=== PATIENT | female | born 1950 | race Two or more races ===

== ENCOUNTER 2020-06-14 09:45 | Inpatient (IN) | payer OTHER ==
[~2020-06-14] VITALS: Ht 162.6 cm; Wt 72.7 kg
[2020-06-14 11:42] LABS: Basophils # (auto) 0 10 ^3/uL (0-0.2); Basophils % (auto) 0.2 % (0.0-2.0); Eosinophils # (auto) 0 10 ^3/uL (0-0.8); Hemoglobin 15.7 g/dL (12.2-16.2); Lymphocytes # (auto) 0.8 10 ^3/uL (0.4-5.4); Lymphocytes % (auto) 9.1 % (10.0-50.0); Mean Corpuscular Hemoglobin 31.2 pg (28.0-32.0); Mean Corpuscular Hgb Conc. 33.4 g/dL (32.0-36.0); Mean Corpuscular Volume 93.2 fL (80.0-100.0); Monocytes # (auto) 0.5 10 ^3/uL (0-1.3); Neutrophils # (auto) 7.2 10 ^3/uL (1.6-8.6); Neutrophils % (auto) 84.7 % (37.0-80.0); Nucleated Red Blood Cells % 0.1 %; Platelet Count (auto) 225 10^3/uL (140-450); Red Blood Cells 5.05 10^6/uL (4.0-5.20); White Blood Cell 8.5 10^3/uL (4.4-10.8)
[2020-06-14] MEDS: cefTRIAXone 1GM/50ML D5W 50 ML IV SCH (12:23)
[2020-06-14 12:25] LABS: Albumin 2.6 g/dL (3.4-5.0); Anion Gap 11 (5-15); Blood Urea Nitrogen 23 mg/dL (7-18); Calcium 8.3 mg/dL (8.5-10.1); Carbon Dioxide 24 mmol/L (21-32); Chloride 102 mmol/L (98-107); Glucose 91 mg/dL (74-106); Potassium 3.8 mmol/L (3.5-5.1); Sodium 137 mmol/L (136-145)
[2020-06-14 12:33] LABS: Alanine Aminotransferase 58 U/L (13-56); Alkaline Phosphatase 90 U/L (45-117); Aspartate Aminotransferase 86 U/L (15-37); BUN/Creatinine Ratio 29.5; Bilirubin, Total 0.6 mg/dL (0.2-1.0); GFR African American 94 mL/min; GFR Non-African American 78 mL/min; Total Protein 7.3 g/dL (6.4-8.2)
[2020-06-14] MEDS: AZITHROMYCIN 500MG/ 250ML 250 ML IV SCH (12:38)
[2020-06-14] MEDS ORDERED: ENOXAPARIN SOD 40 MG/0.4 ML SYRINGE SC SCH (12:41)
[2020-06-14 14:30] VITALS: BP 119/23
[2020-06-14] MEDS ORDERED: NITROGLYCERIN 0.4 MG SL TAB SL PRN (14:30)
[2020-06-14] MEDS ORDERED: ONDANSETRON HCL 4 MG/2 ML VIAL IV PRN (14:30)
[2020-06-14] MEDS ORDERED: MORPHINE SULF INJ 2 MG/ML SYRINGE 1ML IV PRN (14:30)
[2020-06-14] MEDS ORDERED: ACETAMINOPHEN 325 MG TAB PO PRN (14:30)
[2020-06-14] MEDS: MORPHINE SULF INJ 2 MG/ML SYRINGE 1ML IV PRN (14:58)
[2020-06-14 16:22] VITALS: BP 123/56
[2020-06-14 18:00] VITALS: BP 141/58
[2020-06-14 21:00] LABS: Urine Bacteria FEW /hpf (None Seen); Urine Blood Negative /uL (Negative); Urine Specific Gravity 1.023 (1.001-1.035); Urine WBC 3 /hpf (0 - 5)
[2020-06-14 22:00] VITALS: BP 135/63
[2020-06-15] VITALS (30 sets, daily range): BP systolic 106–146; BP diastolic 42–77
[2020-06-15] MEDS: MORPHINE SULF INJ 2 MG/ML SYRINGE 1ML IV PRN (02:58)
[2020-06-15] MEDS: HYDROcodone-ACET 5/325MG TAB PO PRN ×2 (08:12→15:41)
[2020-06-15 08:33] LABS: Lactate Dehydrogenase 603 U/L (84-246)
[2020-06-15 08:34] LABS: CRP High Sensitivity > 19 mg/dL (< 0.3)
[2020-06-15] MEDS: ASCORBIC ACID 500 MG TAB PO SCH ×2 (09:09→11:35)
[2020-06-15] MEDS: ZINC SULFATE 220mg CAP or TAB PO SCH ×2 (09:10→11:35)
[2020-06-15] MEDS: CHOLECALCIFEROL (VITD3) 2,000 UNIT CAP PO SCH ×2 (09:10→11:35)
[2020-06-15] MEDS: cefTRIAXone 1GM/50ML D5W 50 ML IV SCH ×2 (09:19→11:35)
[2020-06-15] MEDS: DexAMETHasone SOD PHOS 10MG/1ML VIAL INJ IV SCH ×2 (09:19→11:34)
[2020-06-15] MEDS: AZITHROMYCIN 500MG/ 250ML 250 ML IV SCH ×2 (09:21→11:35)
[2020-06-15] MEDS ORDERED: ENOXAPARIN SOD 40 MG/0.4 ML SYRINGE SC SCH (10:00)
--- NOTE | 2020-06-15 10:50 | NUR ---
Pt being admitted to ICU SARAH BERGERON admitted to ICU ROOM 109 via gurney on ships or barges loader, and portable 02. Patient transferred to bed, connected to ICU monitoring and oxygen, and weighed by bed scale. Patient oriented to YASMANI PARKER, primary RN, unit, room, bed, and unit policies regarding patient care and visiting hours. All questions and concerns addressed, patient verbalized understanding.
--- NOTE | 2020-06-15 10:55 | NUR ---
PT WAS TRANSPORTED WITHOUT INCIDENT FROM ER 6 TO 109 IN ICU. PT WAS ON BP AND DIRECTOR OF MUSIC AND 100% NRB MASK. PT WAS PLACED ON HFNC ON ORDERED SETTINGS. PT TOLERATING WELL. NO ACUTE DISTRESS NOTED. BAG AND MASK UNIT AT BEDSIDE ALONG WITH O2 SOURCE. HF DEVICE TO RED OUTLET.
--- NOTE | 2020-06-15 13:45 | NUR ---
SPOKE TO OLDEST SON ROSALIE # [phone] ROSALIE STATES THAT IF FOR SOME REASON HE CAN NOT BE REACHED TO CALL HIS YOUNGER BROTHER CODI @ [phone]. ALL QUESTIONS ANSWERED AND ROSALIE GIVEN AN UPDATE ON PATIENTS CURRENT STATUS.
--- NOTE | 2020-06-15 15:34 | NUR ---
PATIENT PRONING PATIENT CURRENTLY PRONING, O2 SATURATION IS CURRENTLY 99% WITH PATIENT PRONING. WILL CONTINUE TO ASSESS.
--- NOTE | 2020-06-15 15:59 | NUR ---
PATIENT NOW REPOSITIONED SUPINE.
[2020-06-15] MEDS ORDERED: FUROSEMIDE 20 MG/2 ML VIAL IV ONE (18:45)
--- NOTE | 2020-06-15 20:00 | NUR ---
SHIFT OPENING NOTE RECEIVED PATIENT AWAKE, ALERT AND ORIENTED X4. ON HIGH FLOW NASAL CANNULA 60L, 100% FI02. SOB NOTED WITH MINIMAL EXERTION. POX 91%. PHYSICAL ASSESSMENT COMPLETED, SEE INTERVENTIONS. INSTRUCTED ON POC AND TO CALL FOR ASSIST NEEDED. BED IS IN THE LOWEST POSITION WITH SIDE RAILS UP X2, CALL LIGHT IS WITHIN REACH. ON ISOLATION FOR COVID 19 PRECAUTIONS.
[2020-06-15] MEDS: ENOXAPARIN SOD 40 MG/0.4 ML SYRINGE SC SCH (20:58)
--- NOTE | 2020-06-15 21:00 | NUR ---
SONAL CONSENT SIGNED BY PATIENT AND FAXED TO PHARMACY
[2020-06-15] MEDS ORDERED: REMDESIVIR 200 MG in NS 210ml LOADING DOSE ADULT IV ONE (22:00)
--- NOTE | 2020-06-15 22:15 | NUR ---
ASSISTED PATIENT WITH BEDPAN 300 ML OF ORANGE URINE NOTED. ASSISTED WITH PERICARE
--- NOTE | 2020-06-15 22:40 | NUR ---
Respiratory note: ATTEMPTED TO PLACE PT ON BIPAP AT THIS TIME. PT STATES SHE IS UNCOMFORTABLE WITH THE MASK. MASK READJUSTED BUT PT IS REFUSING BIPAP AT THIS TIME. PT REMAINS ON HFNC 60L AT 100% FIO2 AND HAS PLACED HERSELF IN THE PRONE POSITION. BIPAP #B6 REMAINS AT THE BEDSIDE CONNECTED TO RED OUTLET AND OXYGEN SOURCE WITH AMBU-BAG AT BEDSIDE. MASK SIZE MEDIUM WITH PROTECTA-GEL AT BEDSIDE. PT IS TOLERATING HFNC IN PRONE POSITION WELL AT THIS TIME. RN INFORMED OF PT BIPAP REFUSAL. WILL CONTINUE TO CLOSELY MONITOR.
[2020-06-16] VITALS (37 sets, daily range): BP systolic 98–143; BP diastolic 42–81
--- NOTE | 2020-06-16 00:05 | NUR ---
ROUNDS PATIENT IS QUIETLY LAYING IN BED SLEEPING IN PRONE POSITION. POX 99%. REMAINS ON HIGH FLOW 60L, 100% FI02.
[2020-06-16 04:29] LABS: Basophils # (auto) 0 10 ^3/uL (0-0.2); Basophils % (auto) 0.1 % (0.0-2.0); Eosinophils # (auto) 0 10 ^3/uL (0-0.8); Eosinophils % (auto) 0.4 % (0.0-7.0); Hemoglobin 14.7 g/dL (12.2-16.2); Lymphocytes # (auto) 0.9 10 ^3/uL (0.4-5.4); Lymphocytes % (auto) 13.5 % (10.0-50.0); Mean Corpuscular Hemoglobin 31.2 pg (28.0-32.0); Mean Corpuscular Hgb Conc. 33.4 g/dL (32.0-36.0); Mean Corpuscular Volume 93.4 fL (80.0-100.0); Monocytes # (auto) 0.4 10 ^3/uL (0-1.3); Monocytes % (auto) 6.7 % (0.0-12.0); Neutrophils # (auto) 5.2 10 ^3/uL (1.6-8.6); Neutrophils % (auto) 79.3 % (37.0-80.0); Nucleated Red Blood Cells % 0.5 %; Platelet Count (auto) 238 10^3/uL (140-450); Red Blood Cells 4.71 10^6/uL (4.0-5.20); Red Cell Distribution Width 13.9 % (11.8-14.3); White Blood Cell 6.6 10^3/uL (4.4-10.8)
--- NOTE | 2020-06-16 04:30 | NUR ---
Respiratory note: RETURNED PT TO PRONE POSITION DUE TO DROP IN SPO2 IN SEMI-FOWLERS POSITION. PT TOLERATED WELL AND SPO2 INCREASED TO 99%. JACOBO WATER CHANGED AT THIS TIME. PT CARE TO BE HANDED OVER TO DAY RT.
--- NOTE | 2020-06-16 04:30 | NUR ---
ASSISTED PATIENT WITH BEDPAN 200 ML OF ORANGE URINE NOTED. ASSISTED WITH PERICARE ASSISTED PATIENT BACK TO THE PRONE POSITION. WILL CLOSELY MONITOR.
[2020-06-16 04:51] LABS: Calcium 8.7 mg/dL (8.5-10.1); Potassium 3.5 mmol/L (3.5-5.1)
[2020-06-16 04:57] LABS: Albumin 2.2 g/dL (3.4-5.0); Bilirubin, Total 0.8 mg/dL (0.2-1.0); Magnesium 2.7 mg/dL (1.6-2.6); Total Protein 6.8 g/dL (6.4-8.2)
--- NOTE | 2020-06-16 06:20 | NUR ---
MORNING HYGIENE CARE PARTIAL BATH PERFORMED USING WET SOAPY WASH CLOTHES. GOWN CHANGED. PARTIAL LINEN CHANGED. PATIENT REPOSITIONED FOR COMFORT. TOLERATED IT WELL.
--- NOTE | 2020-06-16 07:20 | NUR ---
REPORT REPORT RECEIVED FROM CHAD RNALTHEA. PT IN ISOLATION FOR +COVID. PT VIEWED THROUGH SLIDING GLASS DOORS.
--- NOTE | 2020-06-16 07:20 | NUR ---
END OF SHIFT REPORT GIVEN AND CARE ENDORSED TO ENE VELAZQUEZ.
--- NOTE | 2020-06-16 08:00 | NUR ---
ASSESSMENT PT IN ISOLATION FOR + COVID. PT AWAKE AND A/O X4. ABLE TO MOVE ALL EXTREMITIES AND ASSIST IN REPOSITIONING. LUNGS CLEAR AND DIMINISHED THROUGHOUT. ON HIGH FLOW O2 AT 100% FIO2 AND 60 L FLOW. O2 SAT 84% AFTER PT REPOSITIONED SELF IN BED. TELE SR 78. PALPABLE PULSES TO ALL EXTREMITIES WITH NO EDEMA NOTED. ABD SOFT WITH + BOWEL SOUNDS NOTED. LAST BM WAS ON 06/15. USES BEDPAN TO VOID, NONE AT THIS TIME. PT STATES SHE HAS PAIN IN HER CHEST WHEN SHE COUGHS, NO PAIN CURRENTLY. SKIN INTACT. RAILS UP AND BED IN LOW POSITION FOR PT SAFETY. CONTINUE TO MONITOR.
--- NOTE | 2020-06-16 09:00 | NUR ---
NUTRITION PT ATE ABOUT 50% OF HER BREAKFAST.
[2020-06-16] MEDS: cefTRIAXone 1GM/50ML D5W 50 ML IV SCH (09:09)
[2020-06-16] MEDS: AZITHROMYCIN 500MG/ 250ML 250 ML IV SCH (09:41)
--- NOTE | 2020-06-16 09:53 | NUR ---
FAMILY RECEIVED A PHONE CALL FROM PT'S SON, ROSALIE. AFTER VERIFYING THE PASSWORD, I UPDATED HIM ON HIS MOTHER'S CONDITION AND ANSWERED HIS QUESTIONS.
[2020-06-16] MEDS ORDERED: THIAMINE HCL 100 MG TAB PO SCH (10:00)
[2020-06-16] MEDS ORDERED: DexAMETHasone SOD PHOS 10MG/1ML VIAL INJ IV SCH (10:00)
--- NOTE | 2020-06-16 10:00 | NUR ---
ASSISTED PT TO PRONE. O2 SATS UP TO 95%. CONTINUE TO MONITOR.
[2020-06-16] MEDS: DexAMETHasone SOD PHOS 10MG/1ML VIAL INJ IV SCH (10:10)
[2020-06-16] MEDS: ENOXAPARIN SOD 40 MG/0.4 ML SYRINGE SC SCH ×2 (10:10→21:54)
[2020-06-16] MEDS: CHOLECALCIFEROL (VITD3) 2,000 UNIT CAP PO SCH (10:10)
[2020-06-16] MEDS: ZINC SULFATE 220mg CAP or TAB PO SCH (10:10)
[2020-06-16] MEDS: THIAMINE HCL 100 MG TAB PO SCH (10:10)
[2020-06-16] MEDS: ASCORBIC ACID 500 MG TAB PO SCH (10:11)
--- NOTE | 2020-06-16 11:40 | NUR ---
PT STATED SHE CAN'T LAY ON HER STOMACH ANY LONGER . ASSISTED PT TO CHANGE POSITION TO HER LEFT SIDE. CONTINUE TO MONITOR.
--- NOTE | 2020-06-16 14:00 | NUR ---
MD VISIT PT SEEN AND EXAMINED BY DR SOTO.
[2020-06-16] MEDS: REMDESIVIR 100mg in NS 230ml DAILYx4DAYS (NO VENT) IV SCH (16:39)
[2020-06-16] MEDS: guaiFENesin 200 MG/10 ML UD PO PRN ×2 (16:40→21:00)
--- NOTE | 2020-06-16 16:40 | NUR ---
PT GIVEN GUAIFENISON FOR C/O DRY HACKING COUGH.
--- NOTE | 2020-06-16 18:00 | NUR ---
MD VISIT PT SEEN BY DR MENARD. HE SPOKE WITH PT REGARDING CONVALESCENT PLASMA AND PT AGREES TO TAKE IT.
--- NOTE | 2020-06-16 19:00 | NUR ---
Opening Shift Note Assumed care of patient, awake and alert. No S/S of distress/SOB or pain. Instructed on POC and to call for assist PRN, will continue to monitor for changes Q1hr and PRN.
--- NOTE | 2020-06-16 19:30 | NUR ---
REPORT REPORT GIVEN TO MANJINDER BONILLA RN.
--- NOTE | 2020-06-16 22:30 | NUR ---
O2 SATS: RN noted patient to de-saturate to 74%. Patient noted to be asleep and breathing through her mouth. Patient made aware to go on Bi-PAP per MD orders due to her de-saturating. Patient verbalized she refused and feels okay. RN explained the risk of not using her Bi-PAP but still refuses. Patient repositioned for comfort and Hi-flow ensured to be in place. Patient's saturation went up to mid 90's. RN will continue to monitor and assess patient.
--- NOTE | 2020-06-16 23:30 | NUR ---
Blood bank: RN spoke with blood bank. Patient's convalescent plasma will be ordered. RN will await call back from blood bank for arrival of patients blood products.
[2020-06-17] VITALS (36 sets, daily range): BP systolic 109–154; BP diastolic 42–88
--- NOTE | 2020-06-17 | NUR ---
O2 SATS: RN noted patient to de-saturate to 84%. Patient noted to be asleep and breathing through her mouth. Patient made aware to go on Bi-PAP per MD orders due to her de-saturating. Patient verbalized she refused and feels okay. RN explained the risk of not using her Bi-PAP but still refuses. Patient repositioned for comfort and Hi-flow ensured to be in place. Patient's saturation went up to mid 90's. RN will continue to monitor and assess patient.
--- NOTE | 2020-06-17 01:00 | NUR ---
O2 SATS: RN noted patient to de-saturate to 79%. Patient noted to be asleep and breathing through her mouth. Patient made aware to go on Bi-PAP per MD orders due to her de-saturating. Patient verbalized she refused and feels okay. RN explained the risk of not using her Bi-PAP but still refuses. Patient repositioned for comfort and Hi-flow ensured to be in place. Patient's saturation went up to mid 90's. RN will continue to monitor and assess patient.
[2020-06-17] MEDS: MORPHINE SULF INJ 2 MG/ML SYRINGE 1ML IV PRN (01:04)
--- NOTE | 2020-06-17 01:21 | NUR ---
RT paged: RN paged RT to place patient on Bi-pap. Patient has finally agreed to go on Bi-PAP after de-sating into the 70's when she falls asleep. RN explained to patient the risk of not using her Bi-PAP per MD orders and patient finally agreed. RT made aware and is to come to patient bedside to place her on Bi-PAP.
--- NOTE | 2020-06-17 02:20 | NUR ---
RT at bedside: RT at patient bedside, patient placed on Bi-PAP. RN will continue to monitor and assess patient.
--- NOTE | 2020-06-17 02:51 | NUR ---
RT paged: Patient already on Bi-PAP. Patient noted to be saturating at 82%. RN ensured correct placement of Bi-PAP but patient still saturating low.
--- NOTE | 2020-06-17 02:55 | NUR ---
RT at bedside.
--- NOTE | 2020-06-17 03:44 | NUR ---
Patient and Bi-PAP: Patient saturating at 97% but called RN and states she wants the Bi-PAP off. RN explained to patient it is to her benefit that she leaves the Bi-PAP on at this time due her oxygen saturation having improved while on Bi-PAP. Patient still insisted to get off the Bi-PAP and placed back on Hi-Flow. Patient eventually agreed to stay on Bi-PAP at this time due to oxygen sats having improved. RN will continue to monitor and assess.
[2020-06-17 04:05] LABS: Basophils # (auto) 0 10 ^3/uL (0-0.2); Basophils % (auto) 0.1 % (0.0-2.0); Eosinophils # (auto) 0 10 ^3/uL (0-0.8); Hematocrit 42.5 % (36.0-46.0); Hemoglobin 14.4 g/dL (12.2-16.2); Lymphocytes # (auto) 0.7 10 ^3/uL (0.4-5.4); Lymphocytes % (auto) 9.5 % (10.0-50.0); Mean Corpuscular Hemoglobin 31.3 pg (28.0-32.0); Mean Corpuscular Hgb Conc. 33.9 g/dL (32.0-36.0); Mean Corpuscular Volume 92.3 fL (80.0-100.0); Monocytes # (auto) 0.6 10 ^3/uL (0-1.3); Monocytes % (auto) 8.1 % (0.0-12.0); Neutrophils % (auto) 82.3 % (37.0-80.0); Nucleated Red Blood Cells % 0.1 %; Platelet Count (auto) 237 10^3/uL (140-450); Red Cell Distribution Width 13.5 % (11.8-14.3); White Blood Cell 7.3 10^3/uL (4.4-10.8)
[2020-06-17 04:26] LABS: Albumin 2.2 g/dL (3.4-5.0); Calcium 8.5 mg/dL (8.5-10.1); Potassium 3.4 mmol/L (3.5-5.1)
[2020-06-17 04:29] LABS: BUN/Creatinine Ratio 33.3; Bilirubin, Total 0.7 mg/dL (0.2-1.0); Total Protein 6.4 g/dL (6.4-8.2)
--- NOTE | 2020-06-17 04:34 | NUR ---
Bi-PAP off: Patient was noted to saturate to 71%. RN noted patient took Bi-PAP off. RN entered patient's room and patient states she got tired of the mask and wanted it off. RN explained to patient the dangers of having her oxygen off and placed Bi-PAP back on. Patient's sats returned to 93%. RN will continue to monitor and assess patient.
--- NOTE | 2020-06-17 05:45 | NUR ---
Bi-PAP off: Patient was noted to saturate to 77%. RN noted patient took Bi-PAP off. RN entered patient's room and patient states she got tired of the mask and wanted it off. RN explained to patient the dangers of having her oxygen off but patient still refused to wear Bi-PAP. RN placed patient back on High Flow 60L, 100% FIO2. Saturation increased to 92%. RN will continue to monitor and assess patient.
[2020-06-17] MEDS: FUROSEMIDE 40 MG/4 ML VIAL IV SCH ×4 (06:27→19:55)
--- NOTE | 2020-06-17 07:17 | NUR ---
Respiratory note: GOT PAGED TO GO TO ROOM, FOUND PATIENT OFF HFNC. SPO2 62% ON ROOM AIR. PATIENT IS BEING NON-COMPLIANT RIPPING POX, BP CUFF AND HFNC OFF. I EXPLAINED TO HER THE IMPORTANCE OF KEEPING IT ON IN CROATIAN AND MALAGASY. PLACED HER BACK ON HFNC 60L 100% FIO2 PT STRESSED NUMEROUS TIMES THAT SHE DOES NOT LIKE OR WANT TO USE THE BIPAP. WILL RETURN FOR ABG. MARCUS PATIÑO
--- NOTE | 2020-06-17 08:00 | NUR ---
AM ASSESSMENT COMPLETED PT A+O X4 LS CL & DIMINISHED MOSTLY ON THE BASES, PT HAS A SOFT NON PRODUCTIVE COUGH, SHE GETS S.OB WITH ACTIVITY AND EASILY DESATURATES TO THE 40'S WHEN SHE TAKES OFF HER HIGH FLOW MASK. PT HAS NOT BEEN COMPLIANT ALL NIGHT WITH KEEPING HER OXYGEN MASK ON. THE RN HAD TO BE IN THE ROOM MULTIPLE TIME TO PLACE O2 MASK BACK ON HER FACE. I EDUCATED PT ON THE IMPORTANCE OF KEEPING OXYGEN ON. PT VERBALIZED UNDERSTANDING AND AGREED TO KEEP HIGH FLOW O2 MASK ON, SHE ALSO AGREED TO USE INCENTIVE SPIROMETER 10 TIMES PER HOUR WHILE AWAKE. PT SHOWS PROPER IS USAGE CAPABILITY. PULSES STRONG AND REGULAR IN ALL 4 EXTREMITIES MILD EDEMA. REPOSITIONED FOR COMFORT.
--- NOTE | 2020-06-17 08:30 | NUR ---
FC INSERTED FOR INCONTINENCE AND FREQUENT URINATION, PT TOLERATED PROCEDURE WITHOUT ANY DISCOMFORT.
--- NOTE | 2020-06-17 09:03 | NUR ---
UPDATED PT'S SON DEDRICK ON PT'S CONDITION. POC, ADMINISTERING CONVALESCENT PLASMA WITH COVID ANTIBODIES AND ADMINISTERING 2ND DOSE OF REMDESIVIR I ALSO NOTIFIED PT'S SON THAT PT WAS NON COMPLIANT WITH KEEPING HER O2 MASK ON ALL NIGH LAST NIGHT AND THAT THE SPO2 KEEP ON DROPPING ALL THE WAY TO THE 60'S. BUT TODAY PT IS WILLING TO BE COMPLIANT WITH POC. PT'S SON VERBALIZED UNDERSTANDING OF POC.
[2020-06-17 09:36] LABS: Magnesium 2.4 mg/dL (1.6-2.6); Phosphorus 3.5 mg/dL (2.5-4.90)
[2020-06-17] MEDS: AZITHROMYCIN 500MG/ 250ML 250 ML IV SCH (09:37)
[2020-06-17] MEDS: guaiFENesin 200 MG/10 ML UD PO PRN ×3 (10:11→22:26)
[2020-06-17] MEDS: ASCORBIC ACID 500 MG TAB PO SCH (10:11)
[2020-06-17] MEDS: THIAMINE HCL 100 MG TAB PO SCH (10:12)
[2020-06-17] MEDS: ZINC SULFATE 220mg CAP or TAB PO SCH (10:12)
[2020-06-17] MEDS: CHOLECALCIFEROL (VITD3) 2,000 UNIT CAP PO SCH (10:12)
[2020-06-17] MEDS: DexAMETHasone SOD PHOS 10MG/1ML VIAL INJ IV SCH (10:13)
[2020-06-17] MEDS: ENOXAPARIN SOD 40 MG/0.4 ML SYRINGE SC SCH ×2 (10:13→22:25)
[2020-06-17] MEDS: cefTRIAXone 1GM/50ML D5W 50 ML IV SCH (11:35)
--- NOTE | 2020-06-17 12:00 | NUR ---
Nutrition Assessment Note please see attached link for complete assessment [employer] needs BW 69 [id number] kcals (23-25 kcal/kgBW), Est Protein needs: 69-89 gms/day (1.0-1.3 gm/kgBW r/t severe hypoalb). Will continue to monitor and reassess prn. Addendum: 06/17/20 at [address] Amended: Links added.
--- NOTE | 2020-06-17 12:17 | NUR ---
CONVALESCENT PLASMA TRANSFUSION STARTED
[2020-06-17] MEDS ORDERED: ZOLPIDEM TARTRATE 5 MG TAB PO PRN (15:30)
[2020-06-17] MEDS: REMDESIVIR 100mg in NS 230ml DAILYx4DAYS (NO VENT) IV SCH (16:49)
--- NOTE | 2020-06-17 16:57 | NUR ---
1400 PLASMA COMPLETED, NO ADVERSE REACTIONS. VSS. PT AFEBRILE.
--- NOTE | 2020-06-17 17:35 | NUR ---
IV STARTED PT LOST HER LAST IV. 20 # IV STARTED ON RT WRIST ON 2ND ATTEMPT. PT TOLERATED WELL.
--- NOTE | 2020-06-17 19:30 | NUR ---
REPORT GIVEN TO ONCOMING SHIFT.
--- NOTE | 2020-06-17 20:00 | NUR ---
OPEN ASSUMED CARE OF FEMALE PT ON ISOLATION FOR COVID 19. PT A&O X 4. SR ON CONTAINER SHOP WELDER. PT ON HI FLOW NASAL CANNULA 60L 100%. 20 G IV TO R. WRIST IN PLACE B&P. HOB ELEVATED 40 DEGREES FOR PATIENT COMFORT. PT TURNS SELF SIDE TO SIDE. NO SKIN BREAKDOWN. BUSH TO GRAVITY DRAINING CLEAR YELLOW URINE. BED IN LOWEST LOCKED POSITION. SIDE RAILS UP X 2. CALL MOYER IN REACH. PT DENIES PAIN. EDUCATION PROVIDED REGARDING COVID 19 AND IMPORTANCE OF OXYGEN. PT VERBALIZES UNDERSTANDING. WILL CONTINUE TO CLOSELY MONITOR.
--- NOTE | 2020-06-17 20:14 | NUR ---
PT HAS BEEN ON HIGH FLOW ALL DAY WITHOUT TAKING IT OUT HOWEVER HAS EXCESSIVE CALL LIGHT USAGE.
--- NOTE | 2020-06-17 22:26 | NUR ---
COUGH PT C/O NON PRODUCTIVE COUGH. PT GIVEN ROBITUSSIN PER ORDER. SEE EMAR.
--- NOTE | 2020-06-17 23:10 | NUR ---
LOW OXYGEN SATURATION/ REthanTEthan MCNAMARA. PT OBSERVED TO BE SLEEPING. O2 SATS DECREASED TO 85% ON HI FLOW O2. Gianluca MCNAMARA.
--- NOTE | 2020-06-17 23:25 | NUR ---
RESP/RT AT BEDSIDE RT TO BEDSIDE TO PLACE PT ON BIPAP MASK DUE TO LOW OXYGEN SATURATIONS WHEN SLEEPING. PT REFUSING BIPAP MASK. REFUSING TO PRONE. PT TURNED SELF FURTHER TO L. SIDE OXYGEN SATURATIONS ON HI FLOW 60L 100% UP TO 89% PT EDUCATED ON IMPORTANCE OF MAINTAINING OXYGEN SATURATIONS AND IMPORTANCE OF BIPAP MASK. PT STILL REFUSING. WILL CONTINUE TO CLOSELY MONITOR.
[2020-06-18] VITALS (28 sets, daily range): BP systolic 98–126; BP diastolic 43–71
--- NOTE | 2020-06-18 02:00 | NUR ---
RESP/LOW O2/EDUCATION PT TOOK OFF HI FLOW O2. DE-SATURATED TO 78%. HI FLOW PLACED BACK IN PATIENTS NOSE. PT EDUCATED REGARDING IMPORTANCE OF KEEPING HI FLOW ON. PT VERBALIZED UNDERSTANDING. ONCE THIS DIRECTOR STYLE LEFT THE ROOM. PT AGAIN REMOVED HI FLOW. NEW PPE DONNED. AGAIN O2 PLACED BACK ON PT. PT REMAINS A&O X 4. AGAIN EDUCATED PT.
--- NOTE | 2020-06-18 05:00 | NUR ---
HYGIENE PT GIVEN PARTIAL BED BATH. PARTIAL LINEN CHANGE.
--- NOTE | 2020-06-18 05:20 | NUR ---
COUGH PT C/O DRY COUGH. MEDICATED WITH ROBITUSSIN PO PER ORDER. SEE EMAR.
[2020-06-18] MEDS: FUROSEMIDE 40 MG/4 ML VIAL IV SCH (05:22)
[2020-06-18] MEDS: guaiFENesin 200 MG/10 ML UD PO PRN ×2 (05:23→15:59)
[2020-06-18 05:56] LABS: BUN/Creatinine Ratio 33.3; Calcium 8.7 mg/dL (8.5-10.1); Potassium 3.2 mmol/L (3.5-5.1)
[2020-06-18] MEDS: HYDROcodone-ACET 5/325MG TAB PO PRN (06:11)
--- NOTE | 2020-06-18 06:11 | NUR ---
PAIN PT C/O BACK PAIN 11/07. MEDICATED WITH NORCO PO PER ORDER. SEE EMAR.
[2020-06-18 06:12] LABS: CRP High Sensitivity 6.59 mg/dL (< 0.3)
--- NOTE | 2020-06-18 06:20 | NUR ---
K+ 3.2 MD PAGED. ORDERS RECEIVED.
[2020-06-18] MEDS ORDERED: POTASSIUM CHL 20 Meq TABLET PO ONE (06:30)
--- NOTE | 2020-06-18 07:00 | NUR ---
REPORT RECEIVED FROM PRODUCTION CONTROL SUPERVISOR NURSE. PATIENT RESTING IN BED AT THIS TIME. RESPIRATIONS EVEN AND UNLABORED. NO SIGNS OF ACUTE DISTRESS NOTED. CALL LIGHT IN REACH, BED IN LOW POSITION. WILL CONTINUE TO MONITOR.
--- NOTE | 2020-06-18 08:15 | NUR ---
SPOKE TO DR MENARD VIA TELEPHONE AND UPDATED ON PATIENT STATUS. NO NEW ORDERS THIS TIME.
--- NOTE | 2020-06-18 09:00 | NUR ---
DR SOTO AT BEDSIDE TO ASSESS PATIENT AND DISCUSS PLAN OF CARE. MD MADE AWARE OF POTASSIUM LEVEL AND CURRENT REPLACEMENT. PER MD START PATIENT ON POTASSIUM, ALL ORDERS NOTED IN CHART.
[2020-06-18] MEDS: cefTRIAXone 1GM/50ML D5W 50 ML IV SCH (10:19)
[2020-06-18] MEDS: DexAMETHasone SOD PHOS 10MG/1ML VIAL INJ IV SCH (10:32)
[2020-06-18] MEDS: THIAMINE HCL 100 MG TAB PO SCH (10:32)
[2020-06-18] MEDS: ZINC SULFATE 220mg CAP or TAB PO SCH (10:33)
[2020-06-18] MEDS: POTASSIUM CHL 20 Meq TABLET PO SCH ×2 (10:33→22:10)
[2020-06-18] MEDS: CHOLECALCIFEROL (VITD3) 2,000 UNIT CAP PO SCH (10:33)
[2020-06-18] MEDS: ASCORBIC ACID 500 MG TAB PO SCH (10:33)
[2020-06-18] MEDS: ENOXAPARIN SOD 40 MG/0.4 ML SYRINGE SC SCH ×2 (10:34→22:10)
[2020-06-18] MEDS: AZITHROMYCIN 500MG/ 250ML 250 ML IV SCH (10:50)
--- NOTE | 2020-06-18 14:34 | NUR ---
assessment Patient is a 69 year old female who is covid positive in ICU. Per patients son Galo prior to admission patient lived home with family and was independent. Per Galo patient had no need for DME or oxygen. Patient has no advanced directive. I informed Galo that patients post discharge needs to be determined once down graded from ICU. I informed Galo I will continue to monitor and follow up as appropriate for any post discharge needs. Galo verbalized understanding. Addendum: 06/18/20 at 1436 by Little SIMON Amended: Links added.
[2020-06-18] MEDS: REMDESIVIR 100mg in NS 230ml DAILYx4DAYS (NO VENT) IV SCH (17:00)
[2020-06-18] MEDS ORDERED: FUROSEMIDE 40 MG/4 ML VIAL IV ONE (17:45)
--- NOTE | 2020-06-18 19:06 | NUR ---
DR MENARD AT BEDSIDE TO ASSESS PATIENT AND DISCUSS PLAN OF CARE. NO NEW ORDERS AT THIS TIME.
[2020-06-19] VITALS (19 sets, daily range): BP systolic 104–136; BP diastolic 50–63
[2020-06-19 05:06] LABS: Albumin 2.3 g/dL (3.4-5.0); BUN/Creatinine Ratio 43.6; Calcium 8.5 mg/dL (8.5-10.1); Potassium 3.5 mmol/L (3.5-5.1)
[2020-06-19 05:09] LABS: Bilirubin, Total 0.5 mg/dL (0.2-1.0); Total Protein 6.3 g/dL (6.4-8.2)
[2020-06-19] MEDS: FUROSEMIDE 40 MG/4 ML VIAL IV SCH ×2 (06:26→19:56)
--- NOTE | 2020-06-19 07:28 | NUR ---
Respiratory note: RECEIVED PT FROM [facility] RT ON THE ABOVE SETTINGS. PT APPEARS TO BE IN NO RESPIRATORY DISTRESS AT THIS MOMENT. NO SKIN BREAKOWN OR EDEMA. TRIED TO TITRATE FIO2 BUT WENT BACK TO THE SAME SETTINGS DUE TO PT DESAT, WILL ATTEMPT AT A LATER TIME. NO CHANGES MADE AT THIS TIME. HI NAYELI IS CONNECTED TO THE RED OUTLET. AMBU BAG IS AT BEDSIDE AND CONNECTED TO O2. WILL CONTINUE TO MONITOR PT.
[2020-06-19] MEDS: DexAMETHasone SOD PHOS 10MG/1ML VIAL INJ IV SCH (09:02)
[2020-06-19] MEDS: ZINC SULFATE 220mg CAP or TAB PO SCH (09:04)
[2020-06-19] MEDS: POTASSIUM CHL 20 Meq TABLET PO SCH ×2 (09:05→22:20)
[2020-06-19] MEDS: ASCORBIC ACID 500 MG TAB PO SCH (09:05)
[2020-06-19] MEDS: CHOLECALCIFEROL (VITD3) 2,000 UNIT CAP PO SCH (09:06)
[2020-06-19] MEDS: THIAMINE HCL 100 MG TAB PO SCH (09:06)
[2020-06-19] MEDS: ENOXAPARIN SOD 40 MG/0.4 ML SYRINGE SC SCH ×2 (09:06→22:21)
[2020-06-19] MEDS: guaiFENesin 200 MG/10 ML UD PO PRN (09:30)
[2020-06-19] MEDS: cefTRIAXone 1GM/50ML D5W 50 ML IV SCH (09:40)
[2020-06-19] MEDS: AZITHROMYCIN 500MG/ 250ML 250 ML IV SCH (10:48)
--- NOTE | 2020-06-19 16:36 | NUR ---
Midline Placement: Patient educated on need for midline placement. All risks and benefits explained and all questions and concerns addresses prior to procedure. 18g/10cm midline inserted via RIGHT BASILIC vein using Ultrasound. Sterile technique utilized. Blood return obtained from THE SINGLE lumen and flushed easily with NS using proper technique. Midline secured with saline lock; biodisc and occlusive dressing applied. Primary RN ÁNGEL notified. Midline lot # [id number]
[2020-06-19] MEDS: REMDESIVIR 100mg in NS 230ml DAILYx4DAYS (NO VENT) IV SCH (17:15)
[2020-06-20] VITALS (11 sets, daily range): BP systolic 101–122; BP diastolic 43–63
--- NOTE | 2020-06-20 00:15 | NUR ---
High Flow oxygen Pt to EM 263 at this time with high flow o2 60L and 100% FIO2.
--- NOTE | 2020-06-20 00:15 | NUR ---
Assumed care of patient Report received from night MARCUS Ayon. Pt came in on 06/14/20. with a chief complaint of SOB, cough, and CP. Pt was COVID positive one week prior to arrival. Pt states her son traveled to [place] then came to visit her and that is where she believes she got infected. Pt was admitted to ICU on 06/15/20 requiring Bipap due to desaturations on high flow o2. Admitting diagnosis was acute hypoxic respiratory failure and acute viral pneumonia with COVID. Pt denies any PMH. Pt to EM 263 at this time 06/20/20 at 0015 with airborne respiratory isolation in place. Pt is AAOx4 VSS with the exception of spo2 being in the mid 80's. No s/s of respiratory distress noted. Pt denies any pain and has no complaints at this time. Bed is locked at lowest position, side rails are up, call light is within reach. Pt educated manager transportation planning light use and instructed to call if she needs anything. Pt verbalized understanding. Will continue to monitor.
--- NOTE | 2020-06-20 01:00 | NUR ---
Complete Linen change/CHG wipes/shampoo cap Complete linen change, CHG wipe bath, and shampoo cap provided for the patient. Pt tolerated well. Will continue to monitor.
--- NOTE | 2020-06-20 01:05 | NUR ---
IV Dressing change Right wrist IV dressing changed using aseptic technique and secured well. IV site is clean free of any infiltrations, redness, tenderness, or s/s of infection. Will continue to monitor.
--- NOTE | 2020-06-20 01:30 | NUR ---
Meal Pt sitting up in bed eating sandwich per request. Pt independent with feeding and tolerating food well. VSS, will continue to monitor.
[2020-06-20] MEDS: guaiFENesin 200 MG/10 ML UD PO PRN (02:50)
--- NOTE | 2020-06-20 03:00 | NUR ---
Labs drawn and given to Moshe from lab
--- NOTE | 2020-06-20 05:54 | NUR ---
Desaturation episode Pt spo2 down to 73% after patient took off high flow. Pt instructed to leave high flow on. Pt states she does not like it on. Pt put high flow back on and Pt was educated about the importance of keeping high flow on. Pt verbalized understanding. Will continue to monitor
--- NOTE | 2020-06-20 07:40 | NUR ---
O2 SATS DECREASED TO 72% WITH GOOD PLETH. PT. HAD REMOVED HI FLOW AND WAS NOT PLACING BACK ON. WENT INTO RM. AND PLACED HI FLOW BACK ON PT. 60 LITERS, 100% FIO2. PT. SAID SHE FORGOT AND REMOVED IT. EXPLAINED IMPORTANCE OF LEAVING O2 ON AND HER O2 SATS DROPPED SIGNIFICANTLY. PT. UNDERSTOOD. O2 SATS WENT BACK INTO THE MID TO UPPER 80'S WITHIN A COUPLE OF MINUTES.
--- NOTE | 2020-06-20 07:45 | NUR ---
ASSESS- PT. LYING IN BED AWAKE, ALERT AND ORIENTED TIMES FOUR. PT. IS FORGETFUL AT TIMES, HAD RECEIVED AMBIEN DURING THE NIGHT FOR SLEEP. DENIES ANY PAIN OR DISCOMFORT. PT. ON HI FLOW 60 LITERS, 100% FIO2. LUNGS CLEAR SANIA. INSPIRATORY AND EXPIRATORY, DIMINISHED THROUGHOUT AND BASES SANIA. NO SOB. ABD. SOFT, FLAT, NON-TENDER. NO N/V. BOWEL SOUNDS ALL FOUR QUADRANTS. F/C TO GRAVITY WITH CLEAR YELLOW URINE. RADIAL PULSES STRONG, PALPABLE SANIA. DORSALIS PEDAL PULSES STRONG, PALPABLE SANIA. NO EDEMA. PT. MOVES ARMS SANIA. AND LOWER EXTREMITIES WITHOUT DIFFICULTY AND ABLE TO TURN SELF IN BED. SKIN INTACT. MID-LINE AURELIA INTACT.
[2020-06-20] MEDS: cefTRIAXone 1GM/50ML D5W 50 ML IV SCH (09:06)
[2020-06-20] MEDS: POTASSIUM CHL 20 Meq TABLET PO SCH ×2 (09:23→22:26)
[2020-06-20] MEDS: CHOLECALCIFEROL (VITD3) 2,000 UNIT CAP PO SCH (09:23)
[2020-06-20] MEDS: ASCORBIC ACID 500 MG TAB PO SCH (09:23)
[2020-06-20] MEDS: ENOXAPARIN SOD 40 MG/0.4 ML SYRINGE SC SCH (09:23)
[2020-06-20] MEDS: THIAMINE HCL 100 MG TAB PO SCH (09:24)
[2020-06-20] MEDS: ZINC SULFATE 220mg CAP or TAB PO SCH (09:25)
[2020-06-20] MEDS: DexAMETHasone SOD PHOS 10MG/1ML VIAL INJ IV SCH (09:25)
--- NOTE | 2020-06-20 10:05 | NUR ---
DR. ZELAYA Provider/Hospitalist at bedside. GAVE UPDATE ON PT. NEW ORDERS RECEIVED.
[2020-06-20] MEDS: AZITHROMYCIN 500MG/ 250ML 250 ML IV SCH (10:49)
--- NOTE | 2020-06-20 12:20 | NUR ---
DR. MENARD Provider/Hospitalist at bedside. NEW ORDERS RECEIVED.
--- NOTE | 2020-06-20 14:19 | NUR ---
Nutrition Followup Note Wt 70.3 kg Pt is positive for COVID, in isolation with MD at bedside. pt is currently on 2 gm na diet with inadequate Po of 50% x 4 per RN doc [employer] needs BW 69 [id number] kcals (23-25 kcal/kgBW), Est Protein needs: 69-89 gms/day (1.0-1.3 gm/kgBW r/t severe hypoalb). Will continue to monitor and reassess prn. Labs: BUN 24 H GLU 127 H ALB 2.3 L BM: Pt had 1 BM today per RN note Skin: BS 18 mod risk, full details in residential caregiver note PES: Altered nutrition related lab values aeb hyperglycemia severe hypoalb r/t current/chronic medical condition Comments Will continue to monitor PO intake, skin status, pertinent labs and weight trends. Will f/u in 3-5 days Rec: 1) consider prostat 1 packet bid. 2) continue current plan of care
--- NOTE | 2020-06-20 16:00 | NUR ---
PT. HAS BEEN RESTING, NO SIGNS OF DISTRESS OR DISCOMFORT.
--- NOTE | 2020-06-20 20:30 | NUR ---
Partial linen change/CHG bath Partial linen change and CHG bath provided for the patient. Pt tolerated well. Will continue to monitor.
--- NOTE | 2020-06-20 21:56 | NUR ---
Opening Shift Note Report received from day RN Vianey. Pt came in on 06/14/20. with a chief complaint of SOB, cough, and CP. Pt was COVID positive one week prior to arrival. Pt states her son traveled to [place] then came to visit her and that is where she believes she got infected. Pt was admitted to ICU on 06/15/20 requiring Bipap due to desaturations on high flow o2. Admitting diagnosis was acute hypoxic respiratory failure and acute viral pneumonia with COVID. Pt denies any PMH. Pt came to EM on 06/20/20 at 0015 with airborne respiratory isolation in place. Pt is AAOx3 VSS. Pt thought she was at [facility]. Pt reoriented to place, POC, and staff. Pt is currently on high flow 02 60L/100% FIO2. No s/s of respiratory distress noted. Pt denies any pain and has no complaints at this time. Bed is locked at lowest position, side rails are up, call light is within reach. Pt educated staffing consultant light use and instructed to call if she needs anything. Pt verbalized understanding. Will continue to monitor.
[2020-06-20] MEDS: ENOXAPARIN SOD 80 MG/0.8ML SYRINGE SC SCH (22:26)
[2020-06-21] VITALS (11 sets, daily range): BP systolic 102–115; BP diastolic 41–53
[2020-06-21 03:24] LABS: Basophils # (auto) 0.1 10 ^3/uL (0-0.2); Basophils % (auto) 0.6 % (0.0-2.0); Eosinophils # (auto) 0 10 ^3/uL (0-0.8); Eosinophils % (auto) 0.1 % (0.0-7.0); Hematocrit 42.5 % (36.0-46.0); Hemoglobin 14.4 g/dL (12.2-16.2); Lymphocytes # (auto) 1.1 10 ^3/uL (0.4-5.4); Lymphocytes % (auto) 12.4 % (10.0-50.0); Mean Corpuscular Hemoglobin 31.3 pg (28.0-32.0); Mean Corpuscular Hgb Conc. 33.8 g/dL (32.0-36.0); Mean Corpuscular Volume 92.6 fL (80.0-100.0); Monocytes # (auto) 0.5 10 ^3/uL (0-1.3); Neutrophils # (auto) 7.4 10 ^3/uL (1.6-8.6); Neutrophils % (auto) 80.9 % (37.0-80.0); Platelet Count (auto) 322 10^3/uL (140-450); Red Blood Cells 4.59 10^6/uL (4.0-5.20); Red Cell Distribution Width 13.4 % (11.8-14.3); White Blood Cell 9.2 10^3/uL (4.4-10.8)
[2020-06-21 03:46] LABS: Calcium 8.7 mg/dL (8.5-10.1); Potassium 4.5 mmol/L (3.5-5.1)
[2020-06-21] MEDS: ZINC SULFATE 220mg CAP or TAB PO SCH (10:19)
[2020-06-21] MEDS: POTASSIUM CHL 20 Meq TABLET PO SCH ×2 (10:19→22:44)
[2020-06-21] MEDS: THIAMINE HCL 100 MG TAB PO SCH (10:19)
[2020-06-21] MEDS: DexAMETHasone SOD PHOS 10MG/1ML VIAL INJ IV SCH (10:19)
[2020-06-21] MEDS: ASCORBIC ACID 500 MG TAB PO SCH (10:20)
[2020-06-21] MEDS: CHOLECALCIFEROL (VITD3) 2,000 UNIT CAP PO SCH (10:20)
[2020-06-21] MEDS: ENOXAPARIN SOD 80 MG/0.8ML SYRINGE SC SCH ×2 (10:20→22:44)
--- NOTE | 2020-06-21 11:00 | NUR ---
FAMILY CALLED PATIENT'S SON CALLED. PW VERIFIED, UPDATED SON ON PT'S CURRENT STATUS, POC FOR TODAY. CONTINUE CARE.
[2020-06-21] MEDS: cefTRIAXone 1GM/50ML D5W 50 ML IV SCH (11:15)
[2020-06-21] MEDS: AZITHROMYCIN 500MG/ 250ML 250 ML IV SCH (11:30)
--- NOTE | 2020-06-21 11:46 | NUR ---
DR. ZELAYA AT BEDSIDE: ORDERS MD UPDATED ON PT'S CURRENT STATUS. LABS AND POC FOR TODAY. ORDERS GIVEN AND TO BE CARRIED OUT. WILL CONTINUE TO MONITOR.
--- NOTE | 2020-06-21 14:27 | NUR ---
Respiratory note: PT TOLERATING HFNC WELL. FLOW DECREASED TO 50LPM, AND FIO2 DECREASED TO 85%. SPO2 MAINTAINED AT 95%. RN DAMASO MADE AWARE OF CHANGES.
--- NOTE | 2020-06-21 16:00 | NUR ---
REPORT Report received, assumed care of patient.
[2020-06-22] VITALS (7 sets, daily range): BP systolic 102–117; BP diastolic 40–56
--- NOTE | 2020-06-22 06:10 | NUR ---
Respiratory note: RECEIVED PT FROM BODY DESIGN CHECKER ON HFNC ON ABOVE SETTINGS, WITH NASAL PRONGS IN PLACE. NO REDNESS/SKIN BREAK DOWN NOTED. WATER LEVEL ADEQUATE. BS ARE CLEAR/DIMINISHED BILATERALLY. TITRATED FIO2 TO 70%. NO OTHER CHANGES ORDERED/MADE AT THIS TIME. WILL CONTINUE TO MONITOR PT. CHARTING COMPLETE FROM OUTSIDE OF PT ROOM PER COVID-19 PRECAUTIONS/PROTOCOL.
--- NOTE | 2020-06-22 07:00 | NUR ---
Pt remained stable this shift. Seemed to have bad dreams but very vivid of superintendent geophysical laboratory removing nasal canula and keeping it far from her. Pt did not desat during this shift. No S/S of distress. Report given to AM shift, care endorsed.
--- NOTE | 2020-06-22 07:40 | NUR ---
OPENING NOTE ASSUMED CARE OF PATIENT AT THIS TIME. REPORT RECEIVED FROM NOC RN. POC REVIEWED. PT LAYING SUPINE WITH NO DISTRESS NOTED. HEAD TO TOE ASSESSMENT COMPLETE, SEE INTERVENTION SPREADSHEET FOR COMPLETE DETAILS. RECEIVED PT ALERT AND ORIENTED ON COVID PRECAUTION. RECEIVED PT ON HIGH FLOW 40L 02, FI02 80%. PT SATING 94%. PT DENIES PAIN. RIGHT UPPER ARM MIDLINE FLUSHED AND PATENT. BED IN LOWEST LOCKED POSITION. SAFETY PRECAUTIONS IN PLACE AND CALL LIGHT WITHIN REACH.
--- NOTE | 2020-06-22 09:55 | NUR ---
Respiratory note: TITRATED FIO2 TO 60%. PT TOLERATED CHANGE WELL. RN AWARE. WILL CONTINUE TO MONITOR PT. CHARTING COMPLETE FROM OUTSIDE OF PT ROOM PER COVID-19 PRECAUTIONS/PROTOCOL.
[2020-06-22] MEDS: DexAMETHasone SOD PHOS 10MG/1ML VIAL INJ IV SCH ×2 (10:00→10:41)
[2020-06-22] MEDS: cefTRIAXone 1GM/50ML D5W 50 ML IV SCH (10:38)
[2020-06-22] MEDS: AZITHROMYCIN 500MG/ 250ML 250 ML IV SCH (10:39)
[2020-06-22] MEDS: ENOXAPARIN SOD 80 MG/0.8ML SYRINGE SC SCH ×2 (10:40→21:05)
[2020-06-22] MEDS: THIAMINE HCL 100 MG TAB PO SCH (10:41)
[2020-06-22] MEDS: ZINC SULFATE 220mg CAP or TAB PO SCH (10:42)
[2020-06-22] MEDS: ASCORBIC ACID 500 MG TAB PO SCH (10:42)
[2020-06-22] MEDS: CHOLECALCIFEROL (VITD3) 2,000 UNIT CAP PO SCH (10:42)
--- NOTE | 2020-06-22 12:00 | NUR ---
Respiratory note: PT TAKEN OFF OF HFNC, AND PLACED ON 8L OXYMIZER. PT TOLERATED CHANGE WELL. SPO2 94%, HR 50, RR 20. RN AWARE. WILL CONTINUE TO MONITOR PT. CHARTING COMPLETE FROM OUTSIDE OF PT ROOM PER COVID-19 PRECAUTIONS/PROTOCOL.
--- NOTE | 2020-06-22 18:32 | NUR ---
CLOSING NOTE PT AWAKE AND ALERT X4 WITH RESPIRATIONS EVEN AND UNLABORED. PT HAS OXYMIZER AT 8L/MIN. SATING @ 92% WITH NO DISTRESS NOTED. COMFORT MEASURES IN PLACE. BED IN LOWEST LOCKED POSITION, SAFETY PRECAUTIONS IN PLACE AND CALL LIGHT WITHIN REACH.
--- NOTE | 2020-06-22 20:13 | NUR ---
Pt to move to room 238, report given to Gilda VELAZQUEZ. Pt stable at this time. Will move as soon as possible.
--- NOTE | 2020-06-22 20:42 | NUR ---
New Room Patient is room 238. Patient on 8L Oxymizer. Patient stated to feel "well". No status change.
--- NOTE | 2020-06-22 20:45 | NUR ---
Pt transferred to room 238 via bed by RN and CCT. Pt stable at time of transfer, was able to scoot self to new bed. No S/S of distress. Care endorsed to Gilda VELAZQUEZ.
[2020-06-23 04:52] VITALS: BP 92/45
[2020-06-23 07:45] LABS: BUN/Creatinine Ratio 35.8; Calcium 8.5 mg/dL (8.5-10.1)
--- NOTE | 2020-06-23 07:46 | NUR ---
Opening Shift Note Assumed care of patient, awake and alert. No S/S of distress/SOB or pain. Instructed on POC and to call for assist PRN, will continue to monitor for changes Q1hr and PRN. Fall precautions in place per safety protocol. Patient currently on 8L Oxymizer.
[2020-06-23 09:00] VITALS: BP 96/54
[2020-06-23] MEDS: AZITHROMYCIN 250 MG TAB PO SCH (11:36)
[2020-06-23] MEDS: cefTRIAXone 1GM/50ML D5W 50 ML IV SCH (11:36)
[2020-06-23] MEDS: THIAMINE HCL 100 MG TAB PO SCH (11:36)
[2020-06-23] MEDS: CHOLECALCIFEROL (VITD3) 2,000 UNIT CAP PO SCH (11:36)
[2020-06-23] MEDS: ENOXAPARIN SOD 80 MG/0.8ML SYRINGE SC SCH ×2 (11:37→21:43)
[2020-06-23 12:37] VITALS: BP 109/51
[2020-06-23] MEDS: ASCORBIC ACID 500 MG TAB PO SCH (12:39)
[2020-06-23] MEDS: DexAMETHasone SOD PHOS 10MG/1ML VIAL INJ IV SCH (12:39)
[2020-06-23] MEDS: ZINC SULFATE 220mg CAP or TAB PO SCH (12:39)
--- NOTE | 2020-06-23 13:13 | NUR ---
Nutrition Followup Notes Wt 68.5 kg Pt is positive for COVID, in isolation with MD at bedside. Pt is currently on 2 gm Na diet with improved and adequate PO of 75% x 4 per RN doc Est Energy needs BW 69 [id number] kcals (23-25 kcal/kgBW), Est Protein needs: 69-89 gms/day (1.0-1.3 gm/kgBW r/t severe hypoalb). Will continue to monitor and reassess prn. Labs: BUN 19 H, ALB 2.3 L BM: Pt had 2 BM on 06/22 per RN note Skin: BS 18 mod risk, full details in laboratory animal caretaker note PES: Altered nutrition related lab values aeb hyperglycemia severe hypoalb r/t current/chronic medical condition Comments Will continue to monitor PO intake, skin status, pertinent labs and weight trends. Will f/u in 3-5 days Rec: 1) consider prostat 1 packet bid. 2) continue current plan of care
--- NOTE | 2020-06-23 15:00 | NUR ---
Physician MD Vargas at bedside, aware of patient status. Per MD Vargas, encourage patient to prone. Will cont to monitor patient.
[2020-06-23 17:00] VITALS: BP 108/65
[2020-06-23 22:00] VITALS: BP 112/50
[2020-06-24 01:08] VITALS: BP 112/50
[2020-06-24 05:00] VITALS: BP 116/63
--- NOTE | 2020-06-24 08:00 | NUR ---
Opening Shift Note Assumed care of patient, awake and alert X4. No S/S of distress/SOB or pain. On 7L oxymizer tolerating well. Instructed on POC and to call for assist PRN, will continue to monitor for changes Q1hr and PRN.
[2020-06-24 08:39] VITALS: BP 114/51
[2020-06-24] MEDS: DexAMETHasone SOD PHOS 10MG/1ML VIAL INJ IV SCH (10:24)
[2020-06-24] MEDS: ZINC SULFATE 220mg CAP or TAB PO SCH (10:24)
[2020-06-24] MEDS: cefTRIAXone 1GM/50ML D5W 50 ML IV SCH (10:24)
[2020-06-24] MEDS: THIAMINE HCL 100 MG TAB PO SCH (10:24)
[2020-06-24] MEDS: ENOXAPARIN SOD 80 MG/0.8ML SYRINGE SC SCH ×2 (10:25→21:51)
[2020-06-24] MEDS: AZITHROMYCIN 250 MG TAB PO SCH (10:25)
[2020-06-24] MEDS: ASCORBIC ACID 500 MG TAB PO SCH (10:25)
[2020-06-24] MEDS: CHOLECALCIFEROL (VITD3) 2,000 UNIT CAP PO SCH (10:25)
[2020-06-24 13:00] VITALS: BP 105/66
--- NOTE | 2020-06-24 15:55 | NUR ---
BUSH CATHETER DC'D. PATIENT TOLERATED WELL.
[2020-06-24 17:00] VITALS: BP 100/52
--- NOTE | 2020-06-24 17:21 | NUR ---
PATIENT HAD MODERATE AMOUNT OF CLEAR YELLOW URINE IN BSC.
--- NOTE | 2020-06-24 20:10 | NUR ---
OPENING SHIFT NOTE Assumed care of patient who is A&Ox4. Currently on 6L o2 via Oxymizer. Denies pain at this time. Midline in right upper arm intact and patent. Flushed with 10ml NS. Johnson catheter discontinued during previous shift. Patient voided clear yellow urine in BSC without difficulty. POC discussed and patient verbalizes understanding. Bed is in low locked position with side rails up x2. Call light is within reach and patient encouraged to call for assistance when needed. Will continue to monitor for changes PRN.
[2020-06-24] MEDS: SENNA 8.6 MG TAB PO SCH (21:51)
[2020-06-24 22:00] VITALS: BP 96/52
[2020-06-25] MEDS: cefTRIAXone 1GM/50ML D5W 50 ML IV SCH (10:00)
[2020-06-25] MEDS: AZITHROMYCIN 250 MG TAB PO SCH (10:00)
--- NOTE | 2020-06-25 10:21 | NUR ---
Christie MENARD AT BEDSIDE. INFORMED OF PATIENTS ANTIBIOTICS. PER Christie MENARD, FROM HIS STANDPOINT OK TO STOP ANTIBIOTICS.
[2020-06-25] MEDS: DexAMETHasone SOD PHOS 10MG/1ML VIAL INJ IV SCH (10:45)
[2020-06-25] MEDS: ASCORBIC ACID 500 MG TAB PO SCH (10:46)
[2020-06-25] MEDS: CHOLECALCIFEROL (VITD3) 2,000 UNIT CAP PO SCH (10:46)
[2020-06-25] MEDS: ZINC SULFATE 220mg CAP or TAB PO SCH (10:46)
[2020-06-25] MEDS: THIAMINE HCL 100 MG TAB PO SCH (10:46)
[2020-06-25] MEDS: ENOXAPARIN SOD 80 MG/0.8ML SYRINGE SC SCH ×2 (10:47→21:20)
--- NOTE | 2020-06-25 11:01 | NUR ---
Christie ROUNDING: SPOKE TO Christie ZELAYA OVER THE PHONE. INFORMED OF PATIENTS CURRENT STATUS. INFORMED OF ANTIBIOTICS HELD. PER Christie ZELAYA OK TO CONTINUE ANTIBIOTICS.
[2020-06-25 13:00] VITALS: BP 94/62
[2020-06-25 17:26] VITALS: BP 96/51
[2020-06-25 17:39] VITALS: BP 96/50
--- NOTE | 2020-06-25 19:40 | NUR ---
OPENING SHIFT NOTE Assumed care of patient who is A&O x4. Currently on 7L Oxymizer with no s/s of distress. Reports SOB with exertion and noted dry cough. Midline in right upper arm intact and patent. Flushed with 10ml NS. Dressing dated 06/19/20. POC discussed and patient verbalizes understanding. Bed is in low locked position with side rails up x2. Call light is within reach and patient encouraged to call for assistance when needed. Will continue to monitor for changes PRN.
[2020-06-25 21:00] VITALS: BP 104/55
[2020-06-25] MEDS: SENNA 8.6 MG TAB PO SCH (21:20)
--- NOTE | 2020-06-26 01:10 | NUR ---
REPORT GIVEN care endorsed to MARCUS Harper. Patient is stable. resting in bed with eyes closed. No distress noted at this time.
--- NOTE | 2020-06-26 01:12 | NUR ---
Assumed care of patient Assumed care of patient. Patient is resting in bed, alert and oriented X 4. No S/S of respiratory distress noted; denies pain at this time. Respirations are regular and non-labored. Bed in lowest position, brakes are locked, side rails up X 2, call light is within reach. Patient instructed to call for assistance as needed. Will continue to monitor for changes Q1hr and PRN.
[2020-06-26 05:00] VITALS: BP 101/58
--- NOTE | 2020-06-26 06:34 | NUR ---
Respiratory note: POX CHECK, PT WAS AWAKE AND ALERT NO RESP DISTRESS NOTED. HR 48, RR 16, SPO2 98% ON 7L OXYMIZER. TITRATED OXYGEN TO 5L OXYMIZER. PT SPO2 ON 5L IS 95%.
[2020-06-26 08:13] LABS: Basophils # (auto) 0 10 ^3/uL (0-0.2); Eosinophils # (auto) 0 10 ^3/uL (0-0.8); Eosinophils % (auto) 0.3 % (0.0-7.0); Hematocrit 41.6 % (36.0-46.0); Lymphocytes # (auto) 1.9 10 ^3/uL (0.4-5.4); Lymphocytes % (auto) 22.8 % (10.0-50.0); Mean Corpuscular Hemoglobin 31.3 pg (28.0-32.0); Mean Corpuscular Hgb Conc. 33.6 g/dL (32.0-36.0); Mean Corpuscular Volume 93.1 fL (80.0-100.0); Monocytes # (auto) 0.6 10 ^3/uL (0-1.3); Monocytes % (auto) 7.5 % (0.0-12.0); Neutrophils # (auto) 5.7 10 ^3/uL (1.6-8.6); Neutrophils % (auto) 69.4 % (37.0-80.0); Nucleated Red Blood Cells % 0.1 %; Platelet Count (auto) 330 10^3/uL (140-450); Red Blood Cells 4.47 10^6/uL (4.0-5.20); Red Cell Distribution Width 13.6 % (11.8-14.3); White Blood Cell 8.2 10^3/uL (4.4-10.8)
[2020-06-26 08:37] LABS: BUN/Creatinine Ratio 29.4; Calcium 8.7 mg/dL (8.5-10.1)
[2020-06-26 08:39] LABS: INR 1.05 (0.9-1.15); Partial Thromboplastin Time 29.1 sec (23.0-31.2)
[2020-06-26 08:48] LABS: CRP High Sensitivity 0.705 mg/dL (< 0.3)
[2020-06-26 08:58] VITALS: BP 87/45
[2020-06-26] MEDS: DexAMETHasone SOD PHOS 10MG/1ML VIAL INJ IV SCH (09:30)
[2020-06-26] MEDS: CHOLECALCIFEROL (VITD3) 2,000 UNIT CAP PO SCH (09:30)
[2020-06-26] MEDS: ZINC SULFATE 220mg CAP or TAB PO SCH (09:30)
[2020-06-26] MEDS: THIAMINE HCL 100 MG TAB PO SCH (09:30)
[2020-06-26] MEDS: ASCORBIC ACID 500 MG TAB PO SCH (09:30)
[2020-06-26] MEDS: cefTRIAXone 1GM/50ML D5W 50 ML IV SCH (09:30)
[2020-06-26] MEDS: ENOXAPARIN SOD 80 MG/0.8ML SYRINGE SC SCH ×2 (09:30→21:56)
[2020-06-26] MEDS: AZITHROMYCIN 250 MG TAB PO SCH (09:30)
[2020-06-26 12:33] VITALS: BP 105/47
--- NOTE | 2020-06-26 14:00 | NUR ---
Nutrition Followup Notes Wt 72.7 kg Pt is positive for COVID. Pt is currently on 2 m sodium diet with adequate PO of 75% x3 days per RN doc Est Energy needs BW 69 [id number] kcals (23-25 kcal/kgBW), Est Protein needs: 69-89 gms/day (1.0-1.3 gm/kgBW r/t severe hypoalb). Will continue to monitor and reassess prn. Labs: GLUC 148 H, ALB 2.3 L BM: Pt had 1 BM today per RN note Skin: BS 19 low risk, full details in care provider note PES: Altered nutrition related lab values aeb hyperglycemia severe hypoalb r/t current/chronic medical condition Comments Will continue to monitor PO intake, skin status, pertinent labs and weight trends. Will f/u in 3-5 days Rec: 1) consider prostat 1 packet bid. 2) continue current plan of care
[2020-06-26 17:18] VITALS: BP 104/48
--- NOTE | 2020-06-26 17:35 | NUR ---
Dr. Fay Escobedo at bed side. New orders received. Refer to order hx.
--- NOTE | 2020-06-26 18:35 | NUR ---
Patient titrated down to 3L NC o2 reading 92%.
--- NOTE | 2020-06-26 19:30 | NUR ---
Opening Shift Note Assumed care of patient, awake and alert. No S/S of distress/SOB or pain. Safety measures in place, bed in lowest locked position, bed rails raised x2, call light within reach. Pt saturating at 92% on 3L NC. All needs addressed at this time, pt states she feels really good and is hopeful to be discharged soon. Instructed on POC and to call for assist PRN, will continue to monitor for changes Q1hr and PRN.
[2020-06-26] MEDS: SENNA 8.6 MG TAB PO SCH (21:56)
[2020-06-26 22:00] VITALS: BP 102/62
[2020-06-27 05:00] VITALS: BP 103/49
--- NOTE | 2020-06-27 06:26 | NUR ---
Respiratory note: POX CHECK, PT WAS AWAKE AND ALERT, NO RESP DISTRESS NOTED. HR 48, RR 16, SPO2 94% ON 2L N/C.
--- NOTE | 2020-06-27 07:20 | NUR ---
Patient NPO for CT chest this am. Patient verbalizes understanding.
[2020-06-27 08:01] LABS: Basophils # (auto) 0.1 10 ^3/uL (0-0.2); Basophils % (auto) 0.8 % (0.0-2.0); Eosinophils # (auto) 0 10 ^3/uL (0-0.8); Eosinophils % (auto) 0.3 % (0.0-7.0); Hematocrit 40.7 % (36.0-46.0); Hemoglobin 13.6 g/dL (12.2-16.2); Lymphocytes # (auto) 3.4 10 ^3/uL (0.4-5.4); Lymphocytes % (auto) 32.8 % (10.0-50.0); Mean Corpuscular Hemoglobin 31.5 pg (28.0-32.0); Mean Corpuscular Hgb Conc. 33.5 g/dL (32.0-36.0); Mean Corpuscular Volume 93.9 fL (80.0-100.0); Monocytes # (auto) 1.2 10 ^3/uL (0-1.3); Neutrophils # (auto) 5.8 10 ^3/uL (1.6-8.6); Neutrophils % (auto) 55.1 % (37.0-80.0); Nucleated Red Blood Cells % 0.1 %; Platelet Count (auto) 309 10^3/uL (140-450); Red Blood Cells 4.33 10^6/uL (4.0-5.20); Red Cell Distribution Width 13.8 % (11.8-14.3); White Blood Cell 10.5 10^3/uL (4.4-10.8)
[2020-06-27 08:27] LABS: Albumin 2.4 g/dL (3.4-5.0); Calcium 8.4 mg/dL (8.5-10.1); Potassium 3.5 mmol/L (3.5-5.1)
[2020-06-27 08:35] LABS: Bilirubin, Total 0.7 mg/dL (0.2-1.0); Total Protein 5.9 g/dL (6.4-8.2)
[2020-06-27 09:00] VITALS: BP 107/63
[2020-06-27] MEDS ORDERED: IOHEXOL 350 MG/ML 100ML IJ ONE (09:58)
--- NOTE | 2020-06-27 10:05 | NUR ---
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
[2020-06-27] MEDS: ENOXAPARIN SOD 80 MG/0.8ML SYRINGE SC SCH (10:17)
[2020-06-27] MEDS: DexAMETHasone SOD PHOS 10MG/1ML VIAL INJ IV SCH (10:17)
--- NOTE | 2020-06-27 10:18 | NUR ---
Spoke to MD Betty Escobedo, regarding patients current oxygen needs and status. New orders received, refer to order hx.
--- NOTE | 2020-06-27 10:18 | NUR ---
Patient off unit for CT, taken via wheelchair on 2L NC, no s/s pain or distress
--- NOTE | 2020-06-27 10:21 | NUR ---
re:Pulmonary clearance Call to Dr. Gant for DC clearance, detailed message left, with best call back extension. Awaiting call back.
[2020-06-27] MEDS ORDERED: DEXA6TAB6 PO (10:25)
[2020-06-27] MEDS ORDERED: ALBU108A5 IN (10:25)
--- NOTE | 2020-06-27 10:27 | NUR ---
Received call back from DAQUAN Nguyen, per Wendy she will work on eval, regarding home o2 patient will need ABG on RA to for qualification. Will relay information to attending MD.
--- NOTE | 2020-06-27 10:35 | NUR ---
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 I let her know that patient needs to have a qualifying ABG on room air for home oxygen within the last 48 hours. I faxed home health order to [facility].
[2020-06-27] MEDS: ZINC SULFATE 220mg CAP or TAB PO SCH (10:50)
[2020-06-27] MEDS: THIAMINE HCL 100 MG TAB PO SCH (10:50)
[2020-06-27] MEDS: CHOLECALCIFEROL (VITD3) 2,000 UNIT CAP PO SCH (10:51)
[2020-06-27] MEDS: ASCORBIC ACID 500 MG TAB PO SCH (10:51)
--- NOTE | 2020-06-27 11:00 | NUR ---
RE: O2 Patient on RA, saturating 92%. Will monitor closely. Addendum: 06/27/20 at 1101 by MADIHA BENSON RN RN Patient denies sob/cp/distress
--- NOTE | 2020-06-27 11:27 | NUR ---
I called [facility] [phone] and spoke with Riddhi-she will have someone call me back to let me know if they are able to accept this patient.
--- NOTE | 2020-06-27 12:53 | NUR ---
ekg completed and filed in hard chart
--- NOTE | 2020-06-27 12:54 | NUR ---
Patient continuously saturating >94% on RA
[2020-06-27 12:55] VITALS: BP 101/57
--- NOTE | 2020-06-27 13:20 | NUR ---
I spoke with Mery at [facility] (phone [phone])-she said they are able to accept this patient but can not see her until . I faxed home health order to [facility]-requesting authorization for [facility]. I made nurse Fior aware that it is set up and provided her phone number to give to patient-I also let her know that they wouldn't be seeing the patient until . Per Fior patient has been on room air with oxygen saturation greater than 90% and most likely will not need home oxygen.
--- NOTE | 2020-06-27 15:13 | NUR ---
OK to dc without pulmonary clearance per MD Moq. Patient on RA-95%SPO2, HH arranged, EKG results read to MD, CTA results read to MD.
[2020-06-27 16:03] VITALS: BP 110/61
[2020-06-27 16:37] VITALS: BP 104/58
--- NOTE | 2020-06-27 18:34 | NUR ---
Discharge instructions given as ordered. Encourage to follow up with PMD as instructed. All questions and concerns addressed. Patient verbalized understanding. Medication reconciliation form completed and copy given to patient. IV removed with catheter intact, pressure dressing applied. Telemetry unit returned to ICU. Patient taken to vehicle via wheelchair with all personal belongings, accompanied by staff. No distress noted at time of departure.
== END 2020-06-27 18:15 | disposition home health service (06) | DRG 177 ==
LOC: ER 09:45 → EDBD 09:45 → OVERFLOW 09:46 → ICU WEST 06-15 11:51 → DOU IN ICU 06-19 23:59 → TELE-EAST 06-22 20:42
PROVIDERS: ADMIT Internal Medicine; ATTEND Internal Medicine
PROC: XW033E5 Introduction of Remdesivir Anti-infective into Peripheral Vein, Percutaneous Approach, New Technology Group 5 (ICD-10-PCS; 2020-06-15)
PROC: XW13325 Transfusion of Convalescent Plasma (Nonautologous) into Peripheral Vein, Percutaneous Approach, New Technology Group 5 (ICD-10-PCS; principal; 2020-06-17)
PROC: 5A09357 Assistance with Respiratory Ventilation, Less than 24 Consecutive Hours, Continuous Positive Airway Pressure (ICD-10-PCS; 2020-06-17)
DX: U07.1 COVID-19 (principal); J12.89 Other viral pneumonia; J96.01 Acute respiratory failure with hypoxia; J98.11 Atelectasis; E88.09 Other disorders of plasma-protein metabolism, not elsewhere classified; G89.29 Other chronic pain; Z91.19 Patient's noncompliance with other medical treatment and regimen; E87.6 Hypokalemia; M54.9 Dorsalgia, unspecified; R00.1 Bradycardia, unspecified; R74.01 Elevation of levels of liver transaminase levels; R79.89 Other specified abnormal findings of blood chemistry
CPT/HCPCS: 36415; 36600; 71045; 71275; 80048; 80053; 81001; 82728; 82805; 83605; 83615; 83735; 84100; 84132; 84484; 85025; 85379; 85610; 85730; 86141; 86850; 86900; 86901; 87040; 87081; 87426; 93005; 93970; 94660; 97110; 97116; 97163; 97530; G0378; J0696; J1100; J2405

== ENCOUNTER 2021-04-21 18:00 | Emergency (ER) | payer OTHER ==
[~2021-04-21] VITALS: Ht 165.1 cm; Wt 68.9 kg
[~2021-04-21 18:00] MED LIST: ALBU108A5 IN; DEXA6TAB6 PO
[2021-04-21 22:40] VITALS: BP 143/63
== END 2021-04-21 23:44 | disposition home or self-care (01) ==
LOC: ER 18:04
DX: S22.42XA Multiple fractures of ribs, left side, initial encounter for closed fracture (principal); S83.91XA Sprain of unspecified site of right knee, initial encounter; Z79.899 Other long term (current) drug therapy; V49.9XXA Car occupant (driver) (passenger) injured in unspecified traffic accident, initial encounter; Y93.89 Activity, other specified; Y92.410 Unspecified street and highway as the place of occurrence of the external cause; Y99.8 Other external cause status
CPT/HCPCS: 71101; 73590

== ENCOUNTER 2024-03-02 15:26 | Emergency (ER) | payer OTHER ==
[~2024-03-02] VITALS: Ht 165.1 cm; Wt 68.8 kg
[2024-03-02] MEDS: HYDROcodone-ACET 5/325MG TAB PO ONE (17:11)
[2024-03-02 17:13] VITALS: BP 121/64; PULSE 64; RESP 18; TEMP 98; O2SAT 95
[2024-03-02] MEDS ORDERED: PRED20TA2 PO (17:29)
[2024-03-02] MEDS ORDERED: TRAM-626 PO (17:29)
== END 2024-03-02 17:48 | disposition home or self-care (01) ==
LOC: ER 15:26
DX: M51.16 Intervertebral disc disorders with radiculopathy, lumbar region (principal); Z98.890 Other specified postprocedural states; Z79.899 Other long term (current) drug therapy
CPT/HCPCS: 72100

== ENCOUNTER 2024-03-19 16:31 | Emergency (ER) | payer OTHER ==
[~2024-03-19] VITALS: Ht 154.9 cm; Wt 60.0 kg
[~2024-03-19 16:31] MED LIST changes: +PRED20TA2 PO; +TRAM-626 PO
[2024-03-19 18:50] VITALS: BP 125/60; PULSE 75; RESP 16; TEMP 98; O2SAT 95
[2024-03-19] MEDS: KETOROLAC TROMETH 60MG/2ML VIAL IM ONE (20:02)
== END 2024-03-19 20:10 | disposition home or self-care (01) ==
LOC: ER 16:31
DX: M54.42 Lumbago with sciatica, left side (principal); M79.605 Pain in left leg; I82.402 Acute embolism and thrombosis of unspecified deep veins of left lower extremity
CPT/HCPCS: 93971; 96372; 99285; J1885

== ENCOUNTER 2025-02-22 12:52 | Emergency (ER) | payer OTHER ==
[2025-02-22 13:40] VITALS: BP 132/62; PULSE 62; RESP 15; TEMP 97; O2SAT 98
[2025-02-22] MEDS: SODIUM CHLORIDE 0.9% 1,000 ML IV ONE (13:42)
--- NOTE | 2025-02-22 13:44 | DVH ---
CT abdomen and pelvis without contrast INDICATION: R LOW BACK PAIN TECHNIQUE: Serial axial images were performed through the abdomen and pelvis and then reformatted in the sagittal and coronal plane. All CT scans at this medical facility are performed using dose modula tion techniques as appropriate to a performed exam including the following: Automated exposure contro l was utilized; adjustment of the MA and/or KvP according to patient size; and use of iterative recon struction technique. FINDINGS: Liver and spleen are normal in size without focal mass. No renal masses, stones or hydronep hrosis. No masses or enlargement of the adrenal glands or pancreas. No biliary dilatation. There are stones in the gallbladder without gallbladder wall thickening. No distention of bowel loops to sugges t mechanical obstruction of bowel. The appendix is normal in appearance. No free fluid. Within the pe lvis, bladder is smooth walled without stones. No abnormal masses or fluid collections. IMPRESSION: 1. Cholelithiasis without signs of cholecystitis or biliary obstruction 2. No renal stones or hydronephrosis. No signs of urinary tract infection. 3. Degenerative changes in the spine Computed Tomographic Radiation Dosimetry Report: Total CTDI vol = 7.6 mGy Total DLP = 346 mGy-cm Low dose protocols were performed.
[2025-02-22 13:46] LABS: Urine Protein, UAD Negative (Negative)
[2025-02-22 13:49] LABS: Hematocrit 45.3 % (36.0-46.0); Hemoglobin 15.3 g/dL (12.2-16.2); Mean Corpuscular Hemoglobin 31.5 pg (28.0-32.0); Mean Corpuscular Volume 93.2 fL (80.0-100.0); Nucleated Red Blood Cells % 0.1 %
--- NOTE | 2025-02-22 14:00 | ED.PDOC ---
GI ASSESSMENT HPI Comments HPI: 74y F who presents to the ED for chief complaint of abdominal pain - pt states she has bee having L sided abdominal radiating to the back for the past 3 days - pt describes the pain as tightness with no associated exacerbating or relieving factors - pt states she has been taking Tylenol for the past 3x days but states it has not been helping - pt otherwise denies any other symptoms Past Medical history: skin cancer(in remission) Past Surgical history: DENIES ANY Medications: DENIES ANY Social History: Denies smoking, ETOH, and drug use. Allergies: NKA HPI: Poor Historian. REVIEW OF SYSTEMS: CONSTITUTIONAL: Denies acute: fever, diaphoresis, chills, generalized weakness. HEAD: Denies acute: headache, photophobia Eyes: Denies acute: Double vision, vision loss, eye pain, eye discharge. EARS: Denies acute: tinnitus, hearing loss, ear discharge, ear pain, THROAT: Denies acute: sore throat, swelling, difficulty swallowing , pain with swallowing, change in voice. NECK: Denies acute: neck pain, neck swelling, stiff neck. HEART: Denies acute : chest pain, palpitations, LUNGS: Denies acute: SOB, wheezing, cough, hemoptysis ABDOMEN: Denies acute: abdominal pain, Nausea, Vomiting, diarrhea, melena , hematemesis, hematochezia SKIN: Denies acute: rash, redness, lesions, itchiness. EXTREMITIES: Denies acute: calf pain, numbness, tingling, weakness, denies pain in extremity. Denies acute: Low back pain. Neuro: Denies acute: focal neurological deficit, motor or sensory focal neurological deficit, tremors, seizure like activity, confusion, change in mental status, loss of bowel or bladder function, cauda equina like symptoms. : Denies acute: dysuria, hematuria, increase in urinary frequency. PSYCH: Denies acute: hallucination, suicidal ideation, homicidal ideation. FEMALE: Denies acute: abnormal vaginal bleeding, foul odor, unusual discharge. PHYSICAL EXAM: General: ----no----acute distress, awake and alert. Head: normocephalic, atraumatic. Neck: supple, trachea is midline, no swelling. Throat: Normal phonation. Eyes:, no erythema, no purulent discharge, no proptosis, no icterus. Heart: regular rate, regular rhythm, no significant murmur appreciated. Lungs: no apparent respiratory distress, Able to speak in full sentences. No wheezing, no rhonchi, no crackles. No stridors Clear to auscultation bilaterally. Abdomen: non tender to palpation, non distended, soft, no guarding, no rebound, + bowel sounds. Neuro: Awake, Alert, oriented to name, self, situation, follows commands GCS=15. Speech is normal. Skin: no petechia, no purpura, no cyanosis, non-pale, not jaundice. Lower extremities: --no - Pitting edema no deformity, no focal swelling, no calf TTP. Makes eye contact. moves all four extremities. Face: no apparent facial droop. No CVA tenderness to percussion bilaterally. Ambulating in the ED independently. ED COURSE: DISCLAIMER: This medical document was created using an electronic medical record system with voice recognition software and computerized dictation system. Although this document has been carefully reviewed, there might still be some phonetic and typographical errors. Occasional wrong-word or "sound-alike" substitutions may have occurred due to the inherent limitations of voice recognition software. These areas are purely typographical due to imperfections of the software programs and do not reflect any compromise in the patient's medical care. Please read the chart carefully and recognize, using context, where these substitutions have occurred. Chief Complaint: Flank Pain Time Seen by MD: 13:02 Primary Care Provider: DONI Reviewed Notes: Nurses Notes, Allergies Allergies: Coded Allergies: NO KNOWN ALLERGIES (Unverified , 06/14/20) Home Meds Active Scripts Tramadol HCl (Tramadol HCl) 50 Mg Tab, 50 MG PO BID, #24 TAB Prov:CAMILA MURPHY 03/02/24 Prednisone (Prednisone) 20 Mg Tab, 40 MG PO DAILY, #20 TAB Prov:CAMILA MURPHY 03/02/24 Dexamethasone (Decadron) 6 Mg Tab, 6 MG PO DAILY, #5 TAB Prov:ALFRED ALEXNADER MD 06/27/20 Albuterol Sulfate (Albuterol Sulfate Hfa) 108 Mcg/Act Aer, 108 MCG IN Q6HPRN PRN MDD shortness of breath, #1 AER 1 Refill Prov:ALFRED ALEXANDER MD 06/27/20 Information Source: Patient Mode of Arrival: Ambulatory Past Medical History PAST MEDICAL HISTORY: Denies 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 Was a procedure done?: No GI differential Dx Differential Diagnosis: Other (Flank Pain;DDX include Nephrolethiasis, obstr uctive uropathy, kidney cancer, renal infarct, intraabdominal neoplasm, lower lobe pneumonia, retroperitoneal hemorrhage, pancreatitis, aneurysm, dissection, musculoskeletal, rib contusion/trauma, hematoma, PYLONEPHRITIS, muscle strain, spinal disease. ) X-Ray, Labs, Meds, VS Vital Signs Date Time Temp Pulse Resp B/P (MAP) Pulse Ox O2 Delivery O2 Flow Rate FiO2 02/22/25 13:40 97.0 62 15 132/62 (85) 98 97.0 02/22/25 13:15 98.9 63 17 147/66 (93) 96 98.9 Lab Test 02/22/25 14:23 02/22/25 13:33 02/22/25 13:27 Range/Units Troponin I High Sensitivity 5 4 </=34 ng/L White Blood Count 6.6 4.4-10.8 10^3/uL Red Blood Count 4.86 4.0-5.20 10^6/uL Hemoglobin 15.3 12.2-16.2 g/dL Hematocrit 45.3 36.0-46.0 % Mean Corpuscular Volume 93.2 80.0-100.0 fL Mean Corpuscular Hemoglobin 31.5 28.0-32.0 pg Mean Corpuscular Hemoglobin Concent 33.8 32.0-36.0 g/dL Red Cell Distribution Width 13.9 11.8-14.3 % Platelet Count 153 140-450 10^3/uL Mean Platelet Volume 10.5 6.9-10.8 fL Neutrophils (%) (Auto) 54.3 37.0-80.0 % Lymphocytes (%) (Auto) 33.1 10.0-50.0 % Monocytes (%) (Auto) 8.9 0.0-12.0 % Eosinophils (%) (Auto) 3.0 0.0-7.0 % Basophils (%) (Auto) 0.7 0.0-2.0 % Neutrophils # (Auto) 3.6 1.6-8.6 10 ^3/uL Lymphocytes # (Auto) 2.2 0.4-5.4 10 ^3/uL Monocytes # (Auto) 0.6 0-1.3 10 ^3/uL Eosinophils # (Auto) 0.2 0-0.8 10 ^3/uL Basophils # (Auto) 0 0-0.2 10 ^3/uL Nucleated Red Blood Cells 0.1 % Sodium Level 141 136-145 mmol/L Potassium Level 3.4 L 3.5-5.1 mmol/L Chloride Level 104 98-107 mmol/L Carbon Dioxide Level 28 20-31 mmol/L Anion Gap 9 5-15 Blood Urea Nitrogen 8 L 9-23 mg/dL Creatinine 0.75 0.550-1.02 mg/dL Glomerular Filtration Rate Calc 83 >90 mL/min BUN/Creatinine Ratio 10.7 10.0-20.0 Serum Glucose 95 74-106 mg/dL Lactic Acid Level 1.0 0.4-2.0 mmol/L Calcium Level 10.0 8.7-10.4 mg/dL Total Bilirubin 0.7 0.2-1.0 mg/dL Aspartate Amino Transferase (AST) 33 13-40 U/L Alanine Aminotransferase (ALT) 33 7-40 U/L Alkaline Phosphatase 68 46-116 U/L Total Protein 6.9 5.7-8.2 g/dL Albumin 4.5 3.2-4.8 g/dL Urine Color Light-yellow Yellow Urine Clarity Clear Clear Urine pH 6.0 5.0-9.0 Urine Specific Dickens 1.005 1.001-1.035 Urine Protein Negative Negative Urine Ketones Negative Negative Urine Blood Negative Negative /uL Urine Nitrite Negative Negative Urine Bilirubin Negative Negative Urine Urobilinogen Normal Negative mg/dL Urine Leukocyte Esterase Trace Negative /uL Urine RBC None seen 0 - 4 /hpf Urine Microscopic WBC 2 0-5 /HPF Urine Squamous Epithelial Cells Few <5 /hpf Urine Bacteria None seen None Seen /hpf Urine Glucose Normal Normal mg/dL Current Medications Medications (Trade) Dose Ordered Sig/Tony Route Start Time Stop Time Status Last Admin Sodium Chloride 1,000 ml @ 1,000 mls/hr Q1H ONCE IV 02/22/25 13:15 02/22/25 14:14 DC 02/22/25 13:[address] [address] Ph: [phone] DIAGNOSTIC IMAGING Diagnostic Imaging Report : [id number] Signed PATIENT: SARAH BERGERON ACCT: [id number] UNIT: [id number] : 1950 LOC: ER ROOM / BED: / AGE / SEX: 74 / F ADM STATUS: REG ER SERVICE 1310 ORDERING PHYSICIAN: MAYANK SR DO PROCEDURE(s): ABPL - CT AB PEL WO CON-NO ORAL OR IV REASON: R LOW BACK PAIN ORDER NUMBER(s): [id number], ACCESSION NUMBER(s): [id number] CT abdomen and pelvis without contrast INDICATION: R LOW BACK PAIN TECHNIQUE: Serial axial images were performed through the abdomen and pelvis and then reformatted in the sagittal and coronal plane. All CT scans at this medical facility are performed using dose modulation techniques as appropriate to a performed exam including the following: Automated exposure control was utilized; adjustment of the MA and/or KvP according to patient size; and use of iterative reconstruction technique. FINDINGS: Liver and spleen are normal in size without focal mass. No renal masses, stones or hydronephrosis. No masses or enlargement of the adrenal glands or pancreas. No biliary dilatation. There are stones in the gallbladder without gallbladder wall thickening. No distention of bowel loops to suggest mechanical obstruction of bowel. The appendix is normal in appearance. No free fluid. Within the pelvis, bladder is smooth walled without stones. No abnormal masses or fluid collections. IMPRESSION: 1. Cholelithiasis without signs of cholecystitis or biliary obstruction 2. No renal stones or hydronephrosis. No signs of urinary tract infection. 3. Degenerative changes in the spine Computed Tomographic Radiation Dosimetry Report: Total CTDI vol = 7.6 mGy Total DLP = 346 mGy-cm Low dose protocols were performed. ATED BY: MACO NASH MD DICTATED DATE/TIME: 02/22/25 1342 SIGNED BY: MACO NASH MD SIGNED DATE/TIME: 02/22/25 1342 CC: Time of 1ST Reevaluation: 00:00 Reevaluation 1ST: N/A Patient Education/Counseling: Diagnosis, Treatment Family Education/Counseling: Other Comments MDM: patient presented with the above HPI.--possible abdominal pain possible flank pain----workup was initiated. patient was found with the above mentioned diagnosis. the following medications were ordered: please refer to order lists of meds and tests obtained by myself Dr. Sr. Patient ED course and VS have been stabilized. Patient has been reassessed in the ED and remained in a stable condition. Pertinent incidental findings were discussed with the patient and/or family. Patient/family voices understanding and is agreeable with plan. Patient has been observed in the ED adequate length of time to insure impr ovement/stability. Escalation of care considered: Consideration of escalation to observation or admission Repeated CT scan shows no acute abnormalities. Patient has no diarrhea. No actual abdominal pain. Patient was DISCHARGED home in a stable condition. All the reports of any imaging studies that were ordered by myself were reviewed by myself. 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 Captain (02/22/25 ) Ct Ab Pel Wo Con-No Oral Or Iv (02/22/25 13:10) Electrocardigram (02/22/25 13:10) Vital Signs Date Time Temp Pulse Resp B/P (MAP) Pulse Ox O2 Delivery O2 Flow Rate FiO2 02/22/25 13:40 97.0 62 15 132/62 (85) 98 97.0 02/22/25 13:15 98.9 63 17 147/66 (93) 96 98.9 Laboratory Tests Test 02/22/25 13:33 Lactic Acid Level 1.0 mmol/L (0.4-2.0) White Blood Count 6.6 10^3/uL (4.4-10.8) Medications Medications Dose Ordered Sig/Tony Route Start Time Stop Time Status Last Admin Dose Admin Sodium Chloride 1,000 ml @ 1,000 mls/hr Q1H ONCE IV 02/22/25 13:15 02/22/25 14:14 DC 02/22/25 13:42 Departure 1 Departure Time of Disposition: 14:21 Impression: Primary Impression: Flank pain Additional Impression: Abdominal pain Disposition: 01 HOME / SELF CARE / HOMELESS Condition: Stable Additional Instructions: Additional instructions: You MUST follow-up with your primary care/family doctor in 1 to 2 days. If you are unable to see your primary care/family doctor, please return to our emergency room for re-assessment and re-evaluation in 1 to 2 days. Return to the emergency room here in our facility or to the nearest ER [facility] if y our symptoms change or worsen. CONSULTATIONS: you MUST Follow-up for consultation as soon as possible with: -gastroenterology and urology in 1-2 days. Please call for appointment. You MUST call the consultants office yourself to make an appointment. You may need to arrange that through your insurance and/or your primary/family doctor. If you are unable to see the research consultant in 1 to 2 days, you must return to our emergency room (or any other ER of your choice) for re-assessment and re- evaluation. Adequate fluid hydration. Below is a copy of your radiological report for follow up: [place] [address] Ph: [phone] DIAGNOSTIC IMAGING Diagnostic Imaging Report : [id number] Signed PATIENT: SARAH BERGERON ACCT: [id number] UNIT: [id number] : 1950 LOC: ER ROOM / BED: / AGE / SEX: 74 / F ADM STATUS: REG ER SERVICE 1310 ORDERING PHYSICIAN: MAYANK SR DO PROCEDURE(s): ABPL - CT AB PEL WO CON-NO ORAL OR IV REASON: R LOW BACK PAIN ORDER NUMBER(s): [id number], ACCESSION NUMBER(s): [id number] CT abdomen and pelvis without contrast INDICATION: R LOW BACK PAIN TECHNIQUE: Serial axial images were performed through the abdomen and pelvis and then reformatted in the sagittal and coronal plane. All CT scans at this medical facility are performed using dose modulation techniques as appropriate to a performed exam including the following: Automated exposure control was utilized; adjustment of the MA and/or KvP according to patient size; and use of iterative reconstruction technique. FINDINGS: Liver and spleen are normal in size without focal mass. No renal masses, stones or hydronephrosis. No masses or enlargement of the adrenal glands or pancreas. No biliary dilatation. There are stones in the gallbladder without gallbladder wall thickening. No distention of bowel loops to suggest mechanical obstruction of bowel. The appendix is normal in appearance. No free fluid. Within the pelvis, bladder is smooth walled without stones. No abnormal masses or fluid collections. IMPRESSION: 1. Cholelithiasis without signs of cholecystitis or biliary obstruction 2. No renal stones or hydronephrosis. No signs of urinary tract infection. 3. Degenerative changes in the spine Computed Tomographic Radiation Dosimetry Report: Total CTDI vol = 7.6 mGy Total DLP = 346 mGy-cm Low dose protocols were performed. ATED BY: MACO NASH MD DICTATED DATE/TIME: 02/22/25 1342 SIGNED BY: MACO NASH MD SIGNED DATE/TIME: 02/22/25 1342 CC: Discharged With: Self Critical Care Note Critical Care Time?: No I personally scribed for MAYANK SR DO ([email or web address]) on 02/22/25 at 14:00. Electronically submitted by Skyler Tyson ([email or web address]). I personally scribed for MAYANK SR DO ([email or web address]) on 02/22/25 at 14:24. Electronically submitted by Skyler Tyson ([email or web address]). I personally scribed for MAYANK SR DO ([email or web address]) on 02/22/25 at 14:55. Electronically submitted by Skyler Tyson ([email or web address]). I personally scribed for MAYANK SR DO ([email or web address]) on 02/22/25 at 19:22. Electronically submitted by Skyler SIMON). MAYANK SR DO Feb 22, 2025 14:00
[2025-02-22 14:09] LABS: Alanine Aminotransferase 33 U/L (7-40); Albumin 4.5 g/dL (3.2-4.8); Alkaline Phosphatase 68 U/L (46-116); Anion Gap 9 (5-15); BUN/Creatinine Ratio 10.7 (10.0-20.0); Bilirubin, Total 0.7 mg/dL (0.2-1.0); Blood Urea Nitrogen 8 mg/dL (9-23); Calcium 10.0 mg/dL (8.7-10.4); Carbon Dioxide 28 mmol/L (20-31); Chloride 104 mmol/L (98-107); Glucose 95 mg/dL (74-106); Potassium 3.4 mmol/L (3.5-5.1); Sodium 141 mmol/L (136-145); Total Protein 6.9 g/dL (5.7-8.2)
== END 2025-02-22 15:38 | disposition home or self-care (01) ==
LOC: ER 12:52
DX: R10.9 Unspecified abdominal pain (principal); M54.50 Low back pain, unspecified; Z98.890 Other specified postprocedural states; Z79.899 Other long term (current) drug therapy
CPT/HCPCS: 36415; 74176; 80053; 81001; 83605; 84484; 85025; 96360; 96361; 99284; J7030

== ENCOUNTER 2025-06-03 14:09 | Emergency (ER) | payer OTHER ==
[~2025-06-03] VITALS: Ht 165.1 cm; Wt 60.7 kg
--- NOTE | 2025-06-03 15:03 | ED.PDOC ---
Musculoskeletal HPI Comments 74-year-old female who is Mohawk-speaking presents to the ER with a chief complaint of left lower extremity pain. Patient reports on having left posterior calf pain for the past week and worsens with the ambulation. The patient notes on taking [id number] medications with no relief. Denies any other symptoms at this time. Able to bear weight on the leg Denies trauma to the knee or recent fall Denies skin color changes around the knee Denies masses around the knee Denies popping/locking/giving out of the knee Denies fever chills night sweats nausea vomiting Denies previous surgeries to the knee nor significant injury Chief Complaint: Lower Extremity Time Seen by MD: 15:00 Primary Care Provider: DONI Lizarraga Notes: Nurses Notes, Medications, Allergies Allergies: Coded Allergies: NO KNOWN ALLERGIES (Unverified , 06/14/20) Home Meds Active Scripts Tramadol HCl (Tramadol HCl) 50 Mg Tab, 50 MG PO BID, #24 TAB Prov:CAMILA MURPHY 03/02/24 Prednisone (Prednisone) 20 Mg Tab, 40 MG PO DAILY, #20 TAB Prov:CAMILA MURPHY 24 Dexamethasone (Decadron) 6 Mg Tab, 6 MG PO DAILY, #5 TAB Prov:ALFRED ALEXANDER MD 06/27/20 Albuterol Sulfate (Albuterol Sulfate Hfa) 108 Mcg/Act Aer, 108 MCG IN Q6HPRN PRN MDD shortness of breath, #1 AER 1 Refill Prov:ALFRED ALEXANDER MD 06/27/20 Information Source: Patient Mode of Arrival: Ambulatory Location: Left Extremity Location: Calf Timing: Days Prehospital treatment: None Severity: Moderate Able to Move Extremity: Yes Bear Weight: Limited Pain: Moderate Hand Dominance: Right Mechanism: Spontaneous Circumstances: Spontaneous Onset of Symptoms: Spontaneous Symptoms: Pain DVT Risk Factors: NONE Associated signs and symptoms: Leg pain Past Medical History PAST MEDICAL HISTORY: Denies 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 History Family History Family History: Reviewed,noncontributory to illness, Unknown Social History Smoker: Non-Smoker Alcohol: Denies ETOH Use Drugs: Denies Drug Use Lives In: Home Constitutional: denies: chills, diaphoresis, fatigue, fever, malaise, sweats, weakness, others EENTM: denies: blurred vision, double vision, ear bleeding, ear discharge, ear drainage, ear pain, ear ringing, eye pain, eye redness, hearing loss, mouth pain, mouth swelling, nasal discharge, nose bleeding, nose congestion, nose pain, photophobia, tearing, throat pain, throat swelling, voice changes, others Respiratory: denies: cough, hemoptysis, orthopnea, SOB at rest, shortness of breath, SOB with excertion, stridor, wheezing, others Cardiovascular: denies: chest pain, dizzy spells, diaphoresis, Dyspnea on exertion, edema, irregular heart beat, left arm pain, lightheadedness, palpitations, PND, syncope, others Gastrointestinal: denies: abdomen distended, abdominal pain, blood streaked bowels, constipated, diarrhea, dysphagia, difficulty swallowing, hematemesis, melena, nausea, poor appetite, poor fluid intake, rectal bleeding, rectal pain, vomiting, others Genitourinary: denies: abnormal vagina bleeding, burning, dyspareunia, dysuria, flank pain, frequency, hematuria, incontinence, pain, , vagina discharge , urgency, others Neurological: denies: dizziness, fainting, headache, left sided numbness, left sided weakness, numbness, paresthesia, pre-existing deficit, right sided numbness, right sided weakness, seizure, speech problems, tingling, tremors, weakness, others Musculoskeletal: reports: others (Left posterior calf pain); denies: back pain, gout, joint pain, joint swelling, muscle pain, muscle stiffness, neck pain Integumetry: denies: bruises, change in color, change in hair/nails, dryness, laceration, lesions, lumps, rash, wounds, others Allergic/Immunocompromised: denies: Difficulty Healing, Frequent Infections, Hives, Itching, others Hematologic/Lymphatic: denies: anemia, blood clots, easy bleeding, easy bruising, swollen glands, others Endocrine: denies: excessive hunger, excessive sweating, excessive thirst, excessive urination, flushing, intolerance to cold, intolerance to heat, unexplained weight gain, unexplained weight loss, others Psychiatric: denies: anxiety, bipolar disorder, depression, hopeless, panic disorder, schizophrenia, sleepless, suicidal, others All Other Systems: Reviewed and Negative Physical Exam General Appearance: No Apparent Distress, Normal HEENT: Normal ENT Inspection, Pharynx Normal, TMs Normal Neck: Full Range of Motion, Non-Tender, Normal, Normal Inspection Respiratory: Chest Non-Tender, Lungs Clear, No Accessory Muscle Use, No Respiratory Distress, Normal Breath Sounds Cardiovascular: No Edema, No JVD, No Murmur, No Gallop, Normal Peripheral Pulses, Regular Rate/Rhythm Breast Exam: Deferred Gastrointestinal: No Organomegaly, Non Tender, No Pulsatile Mass, Normal Bowel Sounds, Soft Genitalia: Deferred Pelvic: Deferred Rectal: Deferred Extremities: No calf tenderness, Normal capillary refill, Normal inspection, Normal range of motion, Non-tender, No pedal edema Musculoskeletal : Apperance: Normal Neurologic: Alert, commander police reserves II-XII nml as Tested, No Motor Deficits, Normal Affect, Normal Mood, No Sensory Deficits Cerebellar Function: Normal Reflexes: Normal Skin: Dry, Normal Color, Warm Lymphatic: No Adenopathy Was a procedure done? Was a procedure done?: No Differential Diagnosis EXT Differential Diagnosis: Sprain, Other X-Ray, Labs, Meds, VS Vital Signs Date Time Temp Pulse Resp B/P (MAP) Pulse Ox O2 Delivery O2 Flow Rate FiO2 06/03/25 16:40 98.1 63 16 146/67 (93) 98 98.1 06/03/25 16:40 63 16 98 Room Air 06/03/25 14:11 98.7 69 16 156/67 100 98.7 X-Ray, Labs, Meds, VS Comment 74-year-old female who is Mohawk-speaking presents to the ER with a chief complaint of left lower extremity pain. Patient arrives alert and oriented, ABC's intact, afebrile, vital signs stable, saturating well in room air Diagnostic imaging ordered by me and results interpreted by radiology : Left lower extremity ultrasound The patient presents with signs and symptoms concerning for deep venous thrombosis. The differential diagnosis includes but is not limited to: DVT, thrombophlebitis, trauma, venous stasis, peripheral edema, cellulitis. Patients work up was significant for Negative findings On reevaluation, patient had symptomatic improvement. Patient is stable for discharge at this time. External notes reviewed. Test results and diagnostic imaging interpreted. All diagnostic findings, discharge care, education and instructions provided Follow-up with PCP in 2 to 3 days Patient verbalized understanding and agreed to treatment plan Vital signs stable, afebrile, no acute distress noted Patient ambulatory with strong steady gait Advised to return precautions for any new or worsening symptoms, return to ER immediately for re-evaluation Patient is aware that the purpose of this visit was for an acute medical emergency requiring emergent stabilization. Chronic conditions, including malignancies have not been ruled out. Patient is instructed to follow up with PCP as directed and discharge instructions for continued care and workup. If unable to arrange follow-up, patient is to return to the emergency department for reassessment. Patient (parent or legal guardian if applicable) was given verbal and written discharge instructions and acknowledges understanding. Additional MDM Review of External, Non-ED records: External records reviewed. Discussion with independent historian (EMS, family) history obtained from the patient/parents (if applicable) at bedside Chronic conditions affecting care: None Social determinants of health affecting care: None Consideration of admission (observation or admission): I considered escalation of care to admission for this patient, however given the reassuring workup, the patient is safe for outpatient management. Discussion with the Radiology: No Tests considered but not performed: Prescription medication considered but not given: 12 lead EKG interpretation: Time of 1ST Reevaluation: 15:30 Reevaluation 1ST: Improved Patient Education/Counseling: Diagnosis, Treatment, Prognosis Family Education/Counseling: No Family Present Departure 1 Departure Time of Disposition: 16:38 Impression: Primary Impression: Left leg pain Additional Impression: Lumbar radiculopathy Disposition: 01 HOME / SELF CARE / HOMELESS Condition: Stable Discharged With: Self Critical Care Note Critical Care Time?: No Stability Stability form required: No Heart Score Heart Score: Heart Score Response (Comments) Value History N/A 0 EKG N/A 0 Age N/A 0 Risk Factors N/A 0 Troponin N/A 0 Total 0 I personally scribed for MARKUS HOOKS NP ([email or web address]) on 06/03/25 at 15:03. E lectronically submitted by Saroj Kennedy ([email or web address]). MARKUS HOOKS NP Jun 03, 2025 15:03
--- NOTE | 2025-06-03 15:43 | DVH ---
Bilateral lower extremity venous duplex Clinical History: R/o dvt Comparison: US LT LOWER DVT on DOS: 03/19/24 Technique: Duplex Doppler evaluation of the deep venous systems of both lower extremities from the common femoral veins to the popliteal veins including color Doppler and spectral/pulsed waveform analysis was performed. Findings: LEFT SIDE: The common femoral vein demonstrates appropriate compressibility and waveform variability. There is compressibility/patency of the great saphenous vein at the proximal thigh. The femoral vein demonstrates appropriate compressibility and waveform variability. The deep femoral vein demonstrates appropriate compressibility and waveform variability. The popliteal vein demonstrates appropriate compressibility and waveform variability. There is normal compressibility at the tibioperoneal trunk. Impression: 1. No left femoropopliteal venous thrombosis.
[2025-06-03 16:40] VITALS: BP 146/67; PULSE 63; RESP 16; TEMP 98.1; O2SAT 98
[2025-06-03] MEDS: methylPREDNISolone SOD SUCC 125 MG/2 ML VL IM ONE (16:50)
== END 2025-06-03 16:56 | disposition home or self-care (01) ==
LOC: ER 14:09
DX: M54.16 Radiculopathy, lumbar region (principal); M79.605 Pain in left leg; Z98.890 Other specified postprocedural states
CPT/HCPCS: 93971; 96372; 99285; J2919